=== PATIENT | female | born 1975 | race Caucasian/White ===

== ENCOUNTER → 2016-11-28 | Outpatient (CLI) | payer BC ==
[~2016-11-28] MED LIST: ACET-1256 PO; ALBUAER2 INH; BUPR-102 PO; CLB/200 PO; IMIP10TA PO; JNL12021 PO; NITR-5 PO; OXYC1TAB3 PO; ULT/50 PO
--- NOTE | 2016-11-28 12:47 | MAMMOGRAPHY REPORT ---
BILATERAL DIGITAL DIAGNOSTIC MAMMOGRAM TOMOSYNTHESIS WITH CAD: 11/28/2016 CLINICAL HISTORY: Six-month follow-up of left breast asymmetry. The patient reports no current comp laints. She reports a family history of breast cancer in her mother who has had bilateral breast ca ncer. TECHNIQUE: Breast tomosynthesis in addition to standard 2D mammography was performed. Current study was also evaluated with a Computer Aided Detection (CAD) system. Bilateral CC and MLO 2-D and nikko synthesis images were obtained. COMPARISON: Comparison is made to exams dated: 05/28/2016 ultrasound, 05/28/2016 mammogram, 6 aspiration, 08/05/2015 ultrasound, 08/05/2015 mammogram, and 07/28/2015 mammogram - [facility]. BREAST COMPOSITION: The tissue of both breasts is extremely dense, which lowers the sensitivity of mammography. FINDINGS: There are no suspicious masses, calcifications, or areas of architectural distortion noted in either breast. There has been no significant interval change compared to prior exams. The prev iously described asymmetry seen within the left breast on the cc view is less prominent compared to prior exams, and has the appearance of normal fibroglandular tissue on the tomosynthesis images. Th e asymmetry is benign and compatible with normal fibroglandular tissue. IMPRESSION: ACR BI-RADS CATEGORY 2: BENIGN There is no mammographic evidence of malignancy in either breast. A 1 year screening mammogram is re commended. The patient has been verbally notified of the results. Approximately 10% of breast cancers are not detected with mammography. A negative mammographic repor t should not delay biopsy if a clinically suggestive mass is present. Latha Godfrey M.D. ah/:11/28/2016 10:53:06 Patent Counsel: Farideh MITCHELL(R)(M), [facility] letter sent: Normal 1/2 BI-RADS Code: ACR BI-RADS Category 2: Benign
== END | disposition home or self-care (01) ==
LOC: C.MAMM 10:25
PROVIDERS: ATTEND Family Medicine
DX: R92.8 Other abnormal and inconclusive findings on diagnostic imaging of breast (principal); Z80.3 Family history of malignant neoplasm of breast

== ENCOUNTER 2017-04-23 18:47 | Emergency (ER) | payer BC ==
[~2017-04-23] VITALS: Ht 170.2 cm; Wt 66.6 kg
[~2017-04-23 18:47] MED LIST changes: -NITR-5 PO; -OXYC1TAB3 PO
[2017-04-23 19:09] VITALS: TEMP 36.7; Ht 170.2 cm; Wt 66.6 kg
--- NOTE | 2017-04-23 20:43 | EMERGENCY ROOM VISIT NOTE ---
History Report prepared by Mary Kay: Kostas Camara Under the Supervision of: Dr. Antolin Cherry M.D. First contact with patient: 20:26 Chief Complaint: FLANK PAIN Stated Complaint: ABDOMINAL AND BACK PAIN- PHYSICIAN REFERRED History of Present Illness The patient is a 41 year old female who presents to the Emergency Room with complaints of persistent right flank pain that started around 8 and a half hours ago. She says that she saw her primary care physician at the [facility] prior to arrival, and was noted to have blood in her urine, so she was sent here for further lab work. The patient states that her right flank pain started suddenly and has been constant. She does note that laying down makes the pain a bit better. She states that movement worsens the pain. She currently rates her pain as an 8 out of 10 in severity. The patient adds that she has a history of one kidney stone, which she had during her college years. She says that her current pain is similar to that kidney stone bout. She denies any rashes, nausea, chest pain, shortness of breath, fevers, chills, leg numbness, leg weakness, or vaginal discharge or bleeding. The patient also denies any recent trauma. She notes no chance of . She has a history of a cholecystectomy, but no other surgeries. Source of History: patient, spouse/significant other Onset: 8 and a half hours ago Position: other (right flank) Symptom Intensity: 8 out of 10 pain Quality: other (pain) Timing: constant, other (persistent) Modifying Factors (Worsening): movement Modifying Factors (Relieving): other (laying down) Associated Symptoms: No fevers, No chills, No chest pain, No SOB, No nausea , No weakness (leg), No numbness (leg), No rash Note: Associated symptoms: Denies vaginal discharge or bleeding. Review of Systems See HPI for pertinent positives & negatives. A total of 10 systems reviewed and were otherwise negative. 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 Nurse's notes were reviewed and I agree with. Family History Diabetes mellitus FHx: cancer Kidney disease Social History Smoking Status: Never Smoker Alcohol Use: none Housing Status: lives with family Occupation Status: disabled Current/Historical Medications Scheduled Bupropion Hcl (Smoking [place]eterre (Bupropion Hcl Sr), 300 MG PO QAM Ethinyl Estradiol/Norethindr (Junel 09/07), 1 TAB PO QAM Imipramine Hcl (Tofranil), 50 MG PO HS Nitrofurantoin Monohyd Macrocr (Macrobid), 100 MG PO BID Scheduled PRN Albuterol (Ventolin), 2 PUFFS INH QID PRN for PRN Oxycodone Immediate Rel Tab (Roxicodone Ir), 1-2 TAB PO Q4H PRN for Severe Pain Tramadol Hcl (Ultram), 50 MG PO TID PRN for moderate-severe pain Allergies Coded Allergies: Penicillins (Verified Allergy, Severe, DIFFICULTY BREATHING-ANAPHYLAXIS, ) Mushroom (Verified Allergy, Unknown, ANAPHYLAXIS, 04/23/17) Morphine (Verified Adverse Reaction, Intermediate, EMESIS, 04/23/17) Physical Exam Vital Signs Date Time Temp Pulse Resp B/P (MAP) Pulse Ox O2 Delivery O2 Flow Rate FiO2 04/23/17 21:41 76 18 128/75 100 Room Air 04/23/17 20:31 75 16 125/81 100 Room Air 04/23/17 19:09 36.7 91 16 122/81 97 Room Air Physical Exam General: Well developed well nourished uncomfortable-appearing middle aged female complaining of right flank and abdominal pain, breathing comfortably on room air. Normal speech HEENT: Normal cephalic atraumatic. Pupils are equal round and reactive to light. Extraocular movements are intact. Oropharynx is pink with moist mucous membranes. No swelling of the mouth lips or tongue. Neck: Supple with a midline trachea. No meningeal signs or stiffness, no JVD or bruits. No Stridor. Chest: Clear to auscultation bilaterally. No wheezes or rhonchi. No increased work of breathing. Heart: regular rate and rhythm. Abdomen: No rash. Mildly tendern right lower abdomen. Soft, nondistended without rebound guarding or rigidity. Extremities: No cyanosis clubbing or edema. No calf tenderness or assymetry Spine/Back. Non tender to palpation. No CVA tenderness Skin: Good turgor without rashes. Neurologic exam: Cranial nerves two through 12 are intact. Motor and sensation are intact and symmetrical throughout. Medical Decision & Procedures ER Provider Diagnostic Interpretation: CT results as stated below per my review and radiologist interpretation: ABD/PELVIS WITHOUT FOR STONE CT DOSE: 481.12 mGy.cm HISTORY: Flank pain eval for stone. Appy TECHNIQUE: Multiaxial CT images of the abdomen and pelvis were performed without the use of intravenous and oral contrast according to the standard department stone protocol. A dose lowering technique was utilized adhering to the principles of ALARA. COMPARISON STUDY: 11/08/2015 FINDINGS: Lung bases are clear. Liver spleen and pancreas appear unremarkable. Kidneys negative for hydronephrosis. Bowel pattern is nonobstructive. The appendix is normal. Several mesenteric nodes. Several small inguinal nodes. The appendix is normal. Bowel pattern is nonobstructive. Increased fecal load throughout the colon consistent with a component of fecal stasis. 2 cm ovarian cysts bilaterally IMPRESSION: 1. Increased fecal load throughout the colon consistent with a component of fecal stasis. 2. Mild mesenteric adenitis. 3. Small bilateral ovarian follicular cysts. 4. Normal appendix. 5. Prior cholecystectomy The above report was generated using voice recognition software. It may contain grammatical, syntax or spelling errors. Electronically signed by: Emmanuel Bartlett M.D. 04/23/2017 9:23 PM Dictated Date/Time: 04/23/2017 9:18 PM Laboratory Results 04/23/17 20:40 Red Blood Count 4.72, Mean Corpuscular Volume 83.9, Mean Corpuscular Hemoglobin 29.0, Mean Corpuscular Hemoglobin Concent 34.6, Mean Platelet Volume 9.7, Neutrophils (%) (Auto) 49.7, Lymphocytes (%) (Auto) 41.7, Monocytes (%) (Auto) 6.2, Eosinophils (%) (Auto) 1.1, Basophils (%) (Auto) 1.0, Neutrophils # (Auto) 4.68, Lymphocytes # (Auto) 3.92, Monocytes # (Auto) 0.58, Eosinophils # (Auto) 0.10, Basophils # (Auto) 0.09 04/23/17 20:40 Test 04/23/17 20:40 White Blood Count 9.40 K/uL (4.8-10.8) Red Blood Count 4.72 M/uL (4.2-5.4) Hemoglobin 13.7 g/dL (12.0-16.0) Hematocrit 39.6 % (37-47) Mean Corpuscular Volume 83.9 fL (80-100) Mean Corpuscular Hemoglobin 29.0 pg (25-34) Mean Corpuscular Hemoglobin Concent 34.6 g/dl (32-36) Platelet Count 430 K/uL (130-400) Mean Platelet Volume 9.7 fL (7.4-10.4) Neutrophils (%) (Auto) 49.7 % Lymphocytes (%) (Auto) 41.7 % Monocytes (%) (Auto) 6.2 % Eosinophils (%) (Auto) 1.1 % Basophils (%) (Auto) 1.0 % Neutrophils # (Auto) 4.68 K/uL (1.4-6.5) Lymphocytes # (Auto) 3.92 K/uL (1.2-3.4) Monocytes # (Auto) 0.58 K/uL (0.11-0.59) Eosinophils # (Auto) 0.10 K/uL (0-0.5) Basophils # (Auto) 0.09 K/uL (0-0.2) RDW Standard Deviation 39.4 fL (36.4-46.3) RDW Coefficient of Variation 12.9 % (11.5-14.5) Immature Granulocyte % (Auto) 0.3 % Immature Granulocyte # (Auto) 0.03 K/uL (0.00-0.02) Urine Color YELLOW Urine Appearance CLOUDY (CLEAR) Urine pH >= 9.0 (4.5-7.5) Urine Specific [place] 1.015 (1.000-1.030) Urine Protein NEG (NEG) Urine Glucose (UA) NEG (NEG) Urine Ketones NEG (NEG) Urine Occult Blood 2+ (NEG) Urine Nitrite NEG (NEG) Urine Bilirubin NEG (NEG) Urine Urobilinogen NEG (NEG) Urine Leukocyte Esterase LARGE (NEG) Urine WBC (Auto) >30 /hpf (0-5) Urine RBC (Auto) 10-30 /hpf (0-4) Urine Hyaline Casts (Auto) 0 /lpf (0-5) Urine Epithelial Cells (Auto) >30 /lpf (0-5) Urine Bacteria (Auto) 1+ (NEG) Anion Gap 5.0 mmol/L (3-11) Est Creatinine Clear Calc Drug Dose 70.6 ml/min Estimated GFR () 79.9 Estimated GFR (Non- 69.0 BUN/Creatinine Ratio 11.1 (10-20) Calcium Level 9.3 mg/dl (8.5-10.1) Total Bilirubin 0.4 mg/dl (0.2-1) Direct Bilirubin < 0.1 mg/dl (0-0.2) Aspartate Amino Transf (AST/SGOT) 15 U/L (15-37) Alanine Aminotransferase (ALT/SGPT) 19 U/L (12-78) Alkaline Phosphatase 39 U/L (45-117) Total Protein 8.0 gm/dl (6.4-8.2) Albumin 3.7 gm/dl (3.4-5.0) Lipase 135 U/L (73-393) Laboratory studies as stated above per my review. Medications Administered Medications (Trade) Dose Ordered Sig/Adele Route Start Time Stop Time Status Last Admin Dose Admin Sodium Chloride 1,000 ml @ 999 mls/hr Q1H1M STAT IV 04/23/17 20:45 04/23/17 21:45 DC 04/23/17 20:59 999 MLS/HR Sodium Chloride 1,000 ml @ 200 mls/hr Q5H ONCE IV 04/23/17 20:45 04/24/17 01:44 04/23/17 21:38 200 MLS/HR Ketorolac Tromethamine (Toradol Inj) 30 mg NOW STAT IV 04/23/17 20:45 04/23/17 20:47 DC 04/23/17 21:00 30 MG Ondansetron HCl (Zofran Inj) 4 mg NOW STAT IV 04/23/17 20:45 04/23/17 20:47 DC 04/23/17 20:58 4 MG Hydromorphone HCl (Dilaudid Inj) 1 mg NOW STAT IV 04/23/17 21:29 04/23/17 21:30 DC 04/23/17 21:38 1 MG Hydromorphone HCl (Dilaudid Inj) 0.5 mg NOW STAT IV 04/23/17 22:55 04/23/17 22:56 DC 04/23/17 23:06 0.5 MG Ondansetron HCl (Zofran Inj) 4 mg NOW STAT IV 04/23/17 22:56 04/23/17 22:57 DC 04/23/17 23:06 4 MG Sodium Chloride 1,000 ml @ 999 mls/hr Q1H1M STAT IV 04/23/17 23:02 04/24/17 00:02 04/23/17 23:07 999 MLS/HR ECG Indication: abdominal pain Rate (beats per minute): 78 Rhythm: normal sinus Findings: no ectopy Comparison ECG Date: Change: Incomplete right bundle-branch block. Rightward axis. ED Course 2034: Past medical records reviewed. The patient was evaluated in room C5, and a complete history and physical examination were performed. 2044: Ordered Zofran Inj 4 mg IV, Toradol Inj 30 mg IV, NSS 1000 ml @ 200 mls/ hr IV, NSS 1000 ml @ 999 mls/hr IV. 2125: I reevaluated the patient and she is still having pain. I went over the results with her. 2128: Ordered Dilaudid Inj 1 mg IV. 2216: Upon reevaluation, the patient is resting comfortably. I discussed the results and treatment plan with her. She verbalized agreement of the treatment plan. The patient was discharged home. 2229: Ordered Roxicodone Immediate Rel 5MG Home Pack 1 homepack PO. Medical Decision Differentials include but are not limited to: kidney stone, kidney infection, appendicitis, ovarian pathology, , electrolyte or metabolic abnormality. This patient comes in as described above. She was placed in room C5. She is here for treatment and evaluation of right abdominal flank pain. This came on suddenly. She's not significantly tender and she has no fever or white count to suggest infection. She's had not significant anemic. She is not . She's had no acute electrolyte or metabolic abnormalities. She has had her gallbladder previously removed. She has nothing to suggest liver or pancreas disease. I did a CAT scan and she has a normal appendix and no evidence of obstructive uropathy. She does have mild mesenteric adenitis and some stool stasis it may be that these are causing her symptoms. I did give her Dilaudid 1 mg IV and she was reassessed. She felt much better. Her lower abdominal pain does appear to be related to mesenteric adenitis. She is going to use OxyIR 5 mg one or 2 pills her for 6 hours as needed, she feels her Ultram is not working. I told her not to use both of them use one or the other. Do not take with alcohol or before driving do not take with any other stating medication or narcotics. she was also given Macrobid for the possibility of UTI. Her urinalysis is suboptimal and epithelial cells but also has blood and white cells. She was given the first dose here as well as a prescription. She was encouraged to return if: increasing pain, worsening of symptoms, fever or chills, any new problems or concerns. Just prior to being discharged she started complaining of more pain more in her epigastric area. I did EKG which shows no ischemia. She was given additional IV Dilaudid and IV Zofran and fluids and felt much better. I talked to her and she will feel she wants to go home and not be admitted. I encourage her to drink plenty fluids ensure that her bowels are moving and she is going to take the pain medications. She was happy with the plan and was discharged home with her driving. Medication Reconcilliation Current Medication List: was personally reviewed by me Blood Pressure Screening Patient's blood pressure: Normal blood pressure Impression Primary Impression: Right lower quadrant abdominal pain Additional Impression: Mesenteric adenitis Scribe Attestation The scribe's documentation has been prepared under my direction and personally reviewed by me in its entirety. I confirm that the note above accurately reflects all work, treatment, procedures, and medical decision making performed by me. Departure Information Dispostion Home / Self-Care Prescriptions Nitrofurantoin Monohyd Macrocr (Macrobid) 100 Mg Cap 100 MG PO BID for 7 Days, #14 CAP Prov: Antolin Cherry M.D. 04/23/17 Oxycodone Immediate Rel Tab (ROXICODONE IR) 5 Mg Tab 1-2 TAB PO Q4H Y for Severe Pain, #14 TAB Prov: Antolin Cherry M.D. 04/23/17 Referrals Michael Dos Santos M.D. (PCP) Patient Instructions My [facility] Additional Instructions Rest. Drink plenty of fluids. Mild diet. May use OxyIR 5 mg one or 2 pills every 4-6 hours as needed for pain OxyIR may make you drowsy -do not take before drinking, driving, working Do not take OxyIR with your Ultram/tramadol or any other narcotics or alcohol OxyIR may make you drowsy- do not take before drinking, driving, working Return if: Increasing pain, fever or chills, worsening of symptoms, vomiting, any new problems or concerns Follow-up with your doctor in 1-2 days for recheck if not better Problem Qualifiers
[2017-04-23] MEDS ORDERED: ONDANSETRON INJ 2 MG/ML 2 ML VIAL IV STA ×2 (20:45→22:56)
[2017-04-23] MEDS ORDERED: SODIUM CHLORIDE 0.9% 1000ML 1,000 ML IV STA ×2 (20:45→23:02)
[2017-04-23] MEDS ORDERED: SODIUM CHLORIDE 0.9% 1000ML 1,000 ML IV ONE (20:45)
[2017-04-23] MEDS ORDERED: KETOROLAC TROMETHAMINE 30 MG/ML VIAL IV STA (20:45)
[2017-04-23 20:53] LABS: BASO ABS # 0.09 K/uL (0-0.2); COMPLETE YES; EOS % 1.1 %; HEMATOCRIT 39.6 % (37-47); IG% 0.3 %; LYMPH % 41.7 %; LYMPH ABS # 3.92 K/uL (1.2-3.4); MEAN CELL VOLUME 83.9 fL (80-100); MEAN CORPUSCULAR HGB CONC 34.6 g/dl (32-36); MEAN PLATELET VOLUME 9.7 fL (7.4-10.4); MONO % 6.2 %; NEUT % 49.7 %; PLATELET COUNT 430 K/uL (130-400); RED BLOOD COUNT 4.72 M/uL (4.2-5.4)
[2017-04-23 21:09] LABS: URINE APPEARANCE CLOUDY (CLEAR); URINE BILIRUBIN NEG (NEG); URINE COLOR YELLOW; URINE EPITHELIAL CELL AUTO >30 /lpf (0-5); URINE NITRITE NEG (NEG); URINE PH >= 9.0 (4.5-7.5); URINE SPECIFIC GRAVITY 1.015 (1.000-1.030); UROBILINOGEN NEG (NEG)
[2017-04-23 21:14] LABS: ALT/SGPT 19 U/L (12-78); AST/SGOT 15 U/L (15-37); BLOOD UREA NITROGEN 11 mg/dl (7-18); BUN/CREATININE RATIO 11.1 (10-20); CALCIUM 9.3 mg/dl (8.5-10.1); CARBON DIOXIDE 29 mmol/L (21-32); CHLORIDE 103 mmol/L (98-107); GLUCOSE 82 mg/dl (70-99); POTASSIUM 3.4 mmol/L (3.5-5.1); SODIUM 137 mmol/L (136-145)
[2017-04-23 21:17] LABS: ALKALINE PHOSPHATASE 39 U/L (45-117); MANUAL MICROSCOPIC REQUIRED? NO; REVIEW REQ? NO
--- NOTE | 2017-04-23 21:24 | DIAGNOSTIC IMAGING REPORT ---
ABD/PELVIS WITHOUT FOR STONE CT DOSE: 481.12 mGy.cm HISTORY: Flank pain eval for stone. Appy TECHNIQUE: Multiaxial CT images of the abdomen and pelvis were performed without the use of intravenous and oral contrast according to the standard department stone protocol. A dose lowering technique was utilized adhering to the principles of ALARA. COMPARISON STUDY: 11/08/2015 FINDINGS: Lung bases are clear. Liver spleen and pancreas appear unremarkable. Kidneys negative for hydronephrosis. Bowel pattern is nonobstructive. The appendix is normal. Several mesenteric nodes. Several small inguinal nodes. The appendix is normal. Bowel pattern is nonobstructive. Increased fecal load throughout the colon consistent with a component of fecal stasis. 2 cm ovarian cysts bilaterally IMPRESSION: 1. Increased fecal load throughout the colon consistent with a component of fecal stasis. 2. Mild mesenteric adenitis. 3. Small bilateral ovarian follicular cysts. 4. Normal appendix. 5. Prior cholecystectomy. The above report was generated using voice recognition software. It may contain grammatical, syntax or spelling errors. Electronically signed by: Emmanuel Bartlett M.D. 04/23/2017 9:23 PM Dictated Date/Time: 04/23/2017 9:18 PM
[2017-04-23] MEDS ORDERED: HYDROmorphone INJ 1 MG/ML SYR IV STA (21:29)
[2017-04-23] MEDS ORDERED: OXYC1TAB3 PO (22:24)
[2017-04-23] MEDS ORDERED: OXYCODONE IR HOME PACK PO ONE (22:30)
[2017-04-23] MEDS ORDERED: NITR-5 PO (22:45)
[2017-04-23] MEDS ORDERED: MACROBID 100MG HOME PACK 1 EA VIAL PO ONE (22:45)
[2017-04-23] MEDS ORDERED: HYDROmorphone INJ 0.5 MG/0.5 ML SYR IV STA (22:55)
[2017-04-23 23:58] VITALS: BP 118/72; PULSE 86; O2SAT 97
== END 2017-04-23 23:59 | disposition home or self-care (01) ==
LOC: C.EDB 18:49 → C.EDC 23:59
DX: R10.31 Right lower quadrant pain (principal); I88.0 Nonspecific mesenteric lymphadenitis; J45.909 Unspecified asthma, uncomplicated; F98.8 Other specified behavioral and emotional disorders with onset usually occurring in childhood and adolescence; F32.9 Major depressive disorder, single episode, unspecified; M79.7 Fibromyalgia; H81.09 Meniere's disease, unspecified ear; Z83.3 Family history of diabetes mellitus; Z80.9 Family history of malignant neoplasm, unspecified; Z84.1 Family history of disorders of kidney and ureter; Z79.899 Other long term (current) drug therapy

== ENCOUNTER → 2017-05-22 | Outpatient (CLI) | payer BC ==
[~2017-05-22] MED LIST changes: -ACET-1256 PO; -CLB/200 PO; +GADAVIST IV PRN; +OXYC1TAB3 PO
--- NOTE | 2017-05-23 13:53 | MAMMOGRAPHY REPORT ---
BREAST MRI OF BOTH BREASTS : 05/22/2017 CLINICAL HISTORY: 41-year-old woman presents for screening breast MRI. She has a family history of b reast cancer and extremely dense breasts. COMPARISON: Comparison is made to exams dated: 11/28/2016 mammogram, 05/28/2016 ultrasound, 6 mammogram, 08/24/2015 aspiration, 08/05/2015 ultrasound, and 08/05/2015 mammogram - [facility]. TECHNIQUE: Using a 1.5 Shira magnet and dedicated breast coil, multisequence axial images were obtain ed through the breasts. After uneventful IV administration of 6.7 mL of Gadavist, dynamic multiphase contrast-enhanced axial images, and sagittal postcontrast were obtained. Temporal subtraction axial images and 3-D MIP images are provided. Everything was then reviewed on a 3-D workstation, [employer]. FINDINGS: Right breast: There is moderate background parenchymal enhancement. There are scattered T2 hyperinte nse cysts. There is no suspicious enhancing mass, obvious area of non-mass enhancement or suspicious kinetics in the right breast. No focal skin thickening or nipple retraction. No suspicious right a xillary lymphadenopathy. Left breast: There is moderate background parenchymal enhancement. There are scattered T2 hyperinten se cysts. The dominant cyst in the left lower outer quadrant measures 11 mm. There is a small enhan cing mass in the 6:00 to 7:00 middle one third of the left breast (axial page 79/104) that measures 4 x 6 x 5 mm. It demonstrates central washout and peripheral plateau kinetics. This is indeterminate and further characterization with targeted second look ultrasound and possible ultrasound-guided cor e biopsy is recommended. No other suspicious mass or non-mass enhancement is seen in the left breast . No suspicious kinetics. No focal skin thickening or nipple retraction. No suspicious left axilla ry lymphadenopathy. IMPRESSION: ACR BI-RADS CATEGORY 0: INCOMPLETE EVALUATION: NEED ADDITIONAL IMAGING EVALUATION 1. There is a small, 4 x 6 x 5 mm enhancing mass in the 6:00 to 7:00 middle one third of the left br east with suspicious associated kinetics. Targeted second look ultrasound with possible ultrasound g uided core biopsy is recommended (45 minutes cluster. 2. No other prominent or suspicious mass or non-mass enhancement in either breast. 3. No suspicious axillary adenopathy bilaterally. The patient will be called to schedule an appointment. Mary Alicia M.D. ay/:05/22/2017 17:06:05 Automotive Sales Specialist: equipment mechanic specialist, [facility] letter sent: Addl Imaging 0 BI-RADS Code: ACR BI-RADS Category 0: Incomplete Evaluation: Need Additional Imaging Evaluation
== END ==
LOC: C.MRI 11:49
PROVIDERS: ATTEND Surgery
DX: Z12.31 Encounter for screening mammogram for malignant neoplasm of breast (principal); Z80.3 Family history of malignant neoplasm of breast; R92.2 Inconclusive mammogram

== ENCOUNTER → 2017-06-06 | Outpatient (CLI) | payer BC ==
[~2017-06-06] MED LIST changes: -GADAVIST IV PRN
--- NOTE | 2017-06-06 08:49 | Discharge Instructions ---
Discharge Instructions Procedure Procedure Date: Jun 06, 2017. Reason for visit: Left Enhancing Mass. Discharge Discharge Date: Jun 06, 2017. Discharge Diagnosis: status post breast biopsy Instructions Activity Recommendations: Additional Limitations (see below) Return to School/Work: no limitations Recommended Home Diet: No Limitations Provider Instructions: ACTIVITY RECOMMENDATIONS: * No lifting, pushing, pulling or exercising the affected side for three days. RETURN TO SCHOOL/WORK: * You may return to work/school after the procedure, but do not perform any strenuous activities for 24 to 48 hours. MEDICATIONS: * Tylenol (two 325 mg) every four to six hours if needed for mild pain (if not allergic to Tylenol). DIET: * Resume previous diet. SPECIAL CARE INSTRUCTIONS: * Keep biopsy site dry for 24 hours. May shower after 24 hours, but do not soak (bathe) incision. * May remove Tegaderm (plastic patch) tomorrow AFTER showering. * Leave the steri-strips on for one week. Allow the steri-strips to fall off by themselves. If not off after one week, you may remove them. You may place a Bandaid crosswise over the strips, if desired. * Apply ice 10 minutes on and 10 minutes off as needed. * Wear a bra at bedtime to sleep more comfortably for 2-3 days. * Your referring physician should have the results after approximately 5 to 7 business days. * Call for unusual bleeding, fever, drainage, etc or if you have any questions call during normal business hours or after hours call Dr Godfrey, [phone]. FOLLOW UP VISIT: Follow-up with Referring Physician as scheduled. Allergies Coded Allergies: Penicillins (Verified Allergy, Severe, DIFFICULTY BREATHING-ANAPHYLAXIS, ) Mushroom (Verified Allergy, Unknown, ANAPHYLAXIS, 04/23/17) Morphine (Verified Adverse Reaction, Intermediate, EMESIS, 04/23/17) Dyan Licea Recommendations: Call your doctor if: * Temperature above 101 degrees * Pain not relieved by pain medicine ordered * There is increased drainage or redness from any incision * You have any unanswered questions or concerns. Your Doctors Instructions noted above were prepared by provider Latha Godfrey. Patient Signature Section: Patient Instructions Signature Page Janelle Edmond Patient (or Guardian) Signature/Date: I have read and understand the instructions given to me by my caregivers. Caregiver/RN/Doctor Signature/Date: The above-named patient and/or guardian has received patient instructions on this date. + Original Patient Signature Page (only) stays with chart. Please make copy for patient.
--- NOTE | 2017-06-06 14:35 | MAMMOGRAPHY REPORT ---
UNILATERAL LEFT DIGITAL DIAGNOSTIC MAMMOGRAM TOMOSYNTHESIS: 06/06/2017 CLINICAL HISTORY: Status post left breast biopsy. TECHNIQUE: Breast tomosynthesis in addition to standard 2D mammography was performed. Postprocedura l left CC and LM tomosynthesis images including C views were obtained. COMPARISON: Comparison is made to exams dated: 06/06/2017 ultrasound biopsy, 05/22/2017 breast MRI, mammogram, and 05/28/2016 mammogram - [facility]. BREAST COMPOSITION: The tissue of the left breast is extremely dense, which lowers the sensitivity o f mammography. FINDINGS: A new biopsy marker clip is seen within the left inferior breast status post ultrasound gu ided biopsy of the left 6:00 breast mass. No significant postbiopsy hematoma is seen. IMPRESSION: POST PROCEDURE IMAGING FOR MARKER PLACEMENT New biopsy marker clip status post ultrasound guided biopsy of the left 6:00 breast mass. Pathology results are pending. Approximately 10% of breast cancers are not detected with mammography. A negative mammographic report should not delay biopsy if a clinically suggestive mass is present. Latha Godfrey M.D. ah/:06/06/2017 09:04:05 Histopath Tech: Farideh Anton RT(R)(M), [facility] BI-RADS Code: Post Procedure Imaging For Marker Placement
--- NOTE | 2017-06-06 14:35 | MAMMOGRAPHY REPORT ---
ULTRASOUND OF LEFT BREAST: 06/06/2017 CLINICAL HISTORY: Enhancing mass seen in the left 6 to 7:00 breast on recent breast MRI, for which se cond look ultrasound was recommended. COMPARISON: Comparison is made to exams dated: 06/06/2017 ultrasound biopsy, 05/22/2017 breast MRI, mammogram, and 05/28/2016 mammogram - [facility]. TECHNIQUE: Real-time targeted ultrasound of the left breast was performed. FINDINGS: Real-time, high-resolution targeted ultrasound was performed of the area of the enhancing mass seen on recent breast MRI in the left 6 to 7:00 breast. In the left breast at 6:00, 3 cm from t he nipple, there is a hypoechoic non-circumscribed mass which measures 5 x 7 x 4. This is similar in shape, size, and location to the enhancing mass seen on breast MRI and is felt to correlate with the enhancing mass. The mass is indeterminate and ultrasound guided core needle biopsy is recommended f or further evaluation. IMPRESSION: ACR BI-RADS CATEGORY 4: SUSPICIOUS - FOLLOW-UP RECOMMENDED Hypoechoic non-circumscribed 7 mm mass in the left breast at 6:00, which is felt to correspond with t he enhancing mass seen on breast MRI. The mass is indeterminate and ultrasound-guided core needle bi opsy is recommended for further evaluation. The results were discussed with the patient. Biopsy was performed immediately after the ultrasound e elder. Latha Godfrey M.D. /:06/06/2017 08:51:13 Flat Locker: Latha Godfrey MD, [facility] BI-RADS Code: ACR BI-RADS Category 4: Suspicious
--- NOTE | 2017-06-06 14:35 | MAMMOGRAPHY REPORT ---
ULTRASOUND GUIDED BIOPSY LEFT BREAST: 06/06/2017 CLINICAL HISTORY: Left 6:00 breast mass. PATIENT CONSENT: The procedure, risks and benefits were discussed with the patient and informed writt en consent was obtained. A timeout was performed immediately prior to the procedure. PROCEDURE DESCRIPTION: With ultrasound guidance, aseptic technique, and lidocaine as the local anesth etic (1% lidocaine to anesthetize the skin and 1% lidocaine with epinephrine to anesthetize the deepe r tissues), the mass of concern in the left 6:00 breast was sampled 4 times with a 14-gauge Achieve b iopsy needle. Immediately thereafter, with ultrasound guidance, aseptic technique, and lidocaine as the local anesthetic, a metallic localizer clip was placed centrally in the mass. Direct pressure wa s applied to the site immediately post procedure and hemostasis was achieved. Postprocedure unilater al mammograms were performed to confirm clip placement. The patient tolerated the procedure without complication. She was given wound care instructions. The specimens were sent to pathology for analys is. COMPARISON: Comparison is made to exams dated: 05/22/2017 breast MRI, 11/28/2016 mammogram, 05/28/2016 ultrasound, 05/28/2016 mammogram, 08/24/2015 aspiration, and 08/05/2015 ultrasound - [facility]. IMPRESSION: ULTRASOUND GUIDED BIOPSY Ultrasound guided core needle biopsy of the left 6:00 breast mass, with clip placement. The patient will receive pathology results from her referring provider. Latha Godfrey M.D. ah/:06/06/2017 08:52:39 Media Monitor: Farideh MITCHELL(Dimas)(M), [facility]
== END | disposition home or self-care (01) ==
LOC: C.MAMM 08:13
PROVIDERS: ATTEND Surgery
DX: N63.20 Unspecified lump in the left breast, unspecified quadrant (principal); D24.2 Benign neoplasm of left breast

== ENCOUNTER → 2017-11-20 | Outpatient (CLI) | payer OTHER ==
[~2017-11-20] MED LIST changes: -OXYC1TAB3 PO
--- NOTE | 2017-11-20 15:21 | MAMMOGRAPHY REPORT ---
BILATERAL DIGITAL DIAGNOSTIC MAMMOGRAM TOMOSYNTHESIS WITH CAD AND TARGETED LEFT ULTRASOUND: 11/20/2017 CLINICAL HISTORY: The patient is status post surgical excision of a left breast papilloma July 08. The patient reports a palpable lump and associated pain in the left breast for approximately 3 m onths. TECHNIQUE: Breast tomosynthesis in addition to standard 2D mammography was performed. Current study was also evaluated with a Computer Aided Detection (CAD) system. Bilateral CC and MLO 2D and tomosyn thesis images were obtained. COMPARISON: Comparison is made to exams dated: 06/06/2017 mammogram, 06/06/2017 ultrasound, 7 mammogram, 05/28/2016 mammogram, 08/05/2015 mammogram, and 07/28/2015 mammogram - [facility]. BREAST COMPOSITION: The tissue of both breasts is extremely dense, which lowers the sensitivity of m ammography. FINDINGS: There is new mild post surgical architectural distortion in the left 6:00 breast at the sit e of the surgical excision of a left breast papilloma. A triangle marker silva the site of the palpa ble lump in the left 6:00 breast near the region of the post surgical architectural distortion. A li near scar marker denotes a scar on the left anterior breast. There are no suspicious masses, calcifi cations, or areas of nonsurgical architectural distortion in either breast. There has been no signif icant interval change compared to prior exams. Asymmetry within the left retroareolar breast posteri vicenta on the cc view is stable compared to multiple prior exams and has the appearance of normal fibro glandular tissue. Targeted ultrasound was performed of the area of the palpable lump and associated pain pointed out by the patient, in the left breast at approximately 5:30 to 6:00, centered around 5 cm from the nipple. There is ill-defined hypoechoic tissue and associated posterior acoustic shadowing in this region, which correlates with the mammographic architectural distortion and has the mammographic and sonograp hic appearance of postsurgical changes. No suspicious masses or other suspicious sonographic abnorma lities are evident. IMPRESSION: ACR BI-RADS CATEGORY 2: BENIGN, TARGETED ULTRASOUND ACR BI-RADS CATEGORY 2: BENIGN Expected postsurgical changes from surgical excision of a left breast papilloma in the region of the palpable left breast lump pointed out by the patient. There is no mammographic or targeted sonograph ic evidence of malignancy. Recommend clinical follow-up for the tender palpable left breast lump; an y decision to biopsy should be based on clinical grounds. Also recommend routine bilateral screening mammograms in one year. Also consider continuation with annual screening bilateral breast MRI given the strong family history of breast cancer, which would be due May 2018. The patient has been verbally notified of the results. Approximately 10% of breast cancers are not detected with mammography. A negative mammographic report should not delay biopsy if a clinically suggestive mass is present. Latha Godfrey M.D. ah/:11/20/2017 08:54:11 Freight Air Brake Fitter: Karen MITCHELL(Dimas)(M), [facility] letter sent: Normal 1/2 BI-RADS Code: ACR BI-RADS Category 2: Benign Ultrasound BI-RADS: ACR BI-RADS Category 2: Benign
== END | disposition home or self-care (01) ==
LOC: C.MAMM 08:12
PROVIDERS: ATTEND Surgery
DX: N63.20 Unspecified lump in the left breast, unspecified quadrant (principal)

== ENCOUNTER 2022-04-15 14:18 | Inpatient (IN) ==
[2022-04-15] MEDS ORDERED: KETOROLAC TROMETHAMINE 15 MG/ML VIAL IV STA ×2 (14:36→16:49)
[2022-04-15] MEDS ORDERED: SODIUM CHLORIDE 0.9% 1000ML 1,000 ML IV ONE (14:36)
[2022-04-15] MEDS ORDERED: ONDANSETRON INJ 2 MG/ML 2 ML VIAL IV STA (14:36)
--- NOTE | 2022-04-15 15:03 | Emergency Department Note ---
History of Present Illness General Chief Complaint: Abdominal Pain Stated Complaint: ABD PAIN,NAUSEA,SWEATS Time Seen by Provider: 04/15/22 14:24 History of Present Illness Provider Complaint: abdominal pain Onset (ago): 1 day(s) Pain Consistency: constant Location: RLQ Radiation: none Severity: severe Maximum Pain Intensity: 10 Current Pain Intensity: 9 Quality: + stabbing and + sharp Relieved By: + nothing Exacerbated By: + nothing Context: no foreign travel, no possible food poisoning, no sick contacts, no recent antibiotic use, no recent surgery/procedure or no recent injury Associated Symptoms: + nausea and + constipation; no vomiting, no diarrhea, no fever, no chills, no dysuria, no hematemesis, no melena, no hematuria, no syncope, no headache, no neck pain, no back pain, no chest pain, no weakness, no breathing difficulty and no numbness Home Medications Medication Instructions Recorded Confirmed Type bupropion HCl 150 mg 24 hr tablet, 150 mg PO QAM 04/15/22 04/15/22 History extended release bupropion HCl 300 mg 24 hr tablet, 300 mg PO QAM 04/15/22 04/15/22 History extended release buspirone 10 mg tablet 10 mg PO TID 04/15/22 04/15/22 History dexmethylphenidate 10 mg tablet 10 mg PO TID 04/15/22 04/15/22 History imipramine HCl 50 mg tablet 125 mg PO HS 04/15/22 04/15/22 History lorazepam 1 mg tablet 1 mg PO HS PRN Sleep 04/15/22 04/15/22 History norethindrone acetate 1 mg-ethinyl 1 tab PO DAILY 04/15/22 04/15/22 History estradiol 20 mcg tablet (Junel) tramadol 50 mg tablet 50 mg PO Q6 PRN Pain, Severe 04/15/22 04/15/22 History Allergies Allergy/AdvReac Type Severity Reaction Status Date / Time Penicillins Allergy Severe DIFFICULTY Verified 04/15/22 15:21 BREATHING-ANAPHYLAXIS mushroom Allergy Unknown ANAPHYLAXIS Verified 04/15/22 15:21 morphine AdvReac Intermediate EMESIS Verified 04/15/22 15:21 Past Med/Surg History Medical History Asthma Attention deficit disorder Depression Fibromyalgia Mnire's disease No pertinent family history Surgical History History of cholecystectomy Social History Smoking Status: Never smoker Hx Alcohol Use: Yes Preferred Language: Uzbek marital status: Current Living Situation: Spouse current occupational status: employed Feels Safe at Home: Yes Review of Systems A total of 10 systems reviewed and were otherwise negative Physical Exam Vital Signs: Vital Signs - 24 hr 04/15/22 14:19 04/15/22 15:03 04/15/22 15:07 Temperature 36.5 C Temperature Source Oral Pulse Rate 83 Pulse Rate [Right Finger] 76 Respiratory Rate 16 20 Respiratory Effort / Characteristics Non-Labored Respiratory Depth Normal Blood Pressure 118/73 Blood Pressure [Ri ght Arm] 104/63 Blood Pressure Santa n 88 Blood Pressure Santa n [Right Arm] 76 Pulse Oximetry 97 100 Oxygen Delivery Me thod Room Air Room Air Sepsis Recent Feve r Within 48 Hours No Sepsis New/Unexpla ined Change in Men stefany Status No Sepsis Action Take n by Nursing No Action Required Physical Exam: Physical Exam GENERAL: She is oriented to person, place, and time. She appears well-developed and well-nourished. She does not appear distressed. HENT: Exam performed. -Head: Normocephalic and atraumatic. -Right Ear: External ear normal. No mastoid tenderness. -Left Ear: External ear normal. No mastoid tenderness. -Mouth/Throat: The oropharynx is clear and moist. No trismus in the jaw. No dental abscesses or uvula swelling. No oropharyngeal exudate or tonsillar abscesses. EYES: Conjunctivae and EOM are normal. Pupils are equal, round, and reactive to light. Right eye exhibits no discharge. Left eye exhibits no discharge. No scleral icterus. NECK: Normal range of motion. Neck supple. No JVD present. No spinous process tenderness present. No carotid bruit present. No rigidity. No tracheal deviation and normal range of motion present. No Brudzinski's sign and no Kernig's sign noted. CV: Normal rate, regular rhythm, normal heart sounds and intact distal pulses. T here is no peripheral edema. Palpable radial pulses bue. PULM/CHEST: Effort normal and breath sounds normal. No respiratory distress. No stridor. She has no wheezes. She has no rales. -Chest Wall: She exhibits no tenderness. ABD: The abdomen is soft. Bowel sounds are normal. She has no distension. No mass is present. There is no tenderness. There is no rebound, no guarding, no Desouza's sign and no tenderness at McBurney's point. Rovsig negative MUSC/SKEL: Normal range of motion. There is no peripheral edema, tenderness or deformity. LYMPH: No cervical adenopathy. NEURO: She is alert and oriented to person, place, and time. She has normal strength. No cranial nerve deficit or sensory deficit. Coordination and gait normal. GCS eye subscore is 4. GCS verbal subscore is 5. GCS motor subscore is 6. Cerebellar tests wnl. SKIN: Skin is warm and dry. She is not diaphoretic. PSYCH: She has a normal mood and affect. Behavior is normal. Judgment and thought content normal. Course Course 1424: The patient was evaluated in room A2. A complete history and physical exam was performed Cardiac monitoring: An order was placed for continuous cardiac monitoring. The monitor shows a rate of 80 with sinus rhythm 1750: Vital signs stable. Labs show a leukocytosis of 14.8. Urinalysis is possibly infected. Antibiotics given in the emergency department IV. Imaging shows wall thickening of the descending colon consistent with a nonspecific colitis. No free air or abscess. There is also a near occlusive thrombus within the anterior branch of the right portal vein possible minimal process within the distal superior mesenteric vein extending into the main portal vein and a normal appendix. I discussed these CT findings with GI on-call Dr. Oswaldo Briggs. Both he and I agree feel would be warranted for the patient to be admitted for anticoagulation with heparin and be evaluated for hypercoagulable work-up and then transition to Coumadin. Coags were added to the patient's blood work. Patient reports no history of any hypercoagulable diseases or past work-up for hypercoagulable diseases. Patient be admitted to the [facility] hospitalist team Dr. Frost team notified. Administered Medications Heparin Sodium/Dextrose (Heparin Sodium/Dextrose) 25,000 units in 500 mls @ 23 mls/hr IV .[id number] [facility]; Protocol Stop: 05/15/22 18:14 Last Admin: 04/15/22 18:45 Dose: 1,150 units/hr, 23 mls/hr Documented By: ROB Co-signed By: SANDY Ciprofloxacin (Cipro / D5w) 400 mg in 200 mls @ 100 mls/hr IV NOW STA; Protocol Stop: 04/15/22 19:48 Last Admin: 04/15/22 18:46 Dose: 100 mls/hr Documented By: ROB Sodium Chloride (Nss 1000ml) 1,000 mls @ 125 mls/hr IV .Q8H ILIANA Stop: 05/15/22 18:29 Last Admin: 04/15/22 18:46 Dose: 125 mls/hr Documented By: ROB Discontinued Medications Heparin Sodium (Porcine) (Heparin Sod (Porcine) 1000 Unit/Ml) 5,000 units IV NOW ONE Stop: 04/15/22 18:31 Last Admin: 04/15/22 18:45 Dose: 5,000 units Documented By: ROB Co-signed By: SANDY Sodium Chloride (Nss 1000ml) 1,000 mls @ 999 mls/hr IV .Q1H1M ONE Stop: 04/15/22 15:36 Last Infusion: 04/15/22 16:19 Dose: 0 mls/hr Documented By: Admin: 04/15/22 15:04 Dose: 999 mls/hr Documented By: SANDY Ioversol (Optiray 300 500ml) 95 ml IV ONCE ONE Stop: 04/15/22 17:03 Last Admin: 04/15/22 17:03 Dose: 95 ml Documented By: EMIGDIO Ketorolac Tromethamine (Ketorolac Tromethamine 15 Mg/Ml Vial) 15 mg IV NOW STA Stop: 04/15/22 14:37 Last Admin: 04/15/22 15:04 Dose: 15 mg Documented By: SANDY Ketorolac Tromethamine (Ketorolac Tromethamine 15 Mg/Ml Vial) 15 mg IV NOW STA Stop: 04/15/22 16:50 Last Admin: 04/15/22 17:09 Dose: 15 mg Documented By: ROB Ondansetron HCl (Ondansetron Inj 2 Mg/Ml 2 Ml Vial) 4 mg IV NOW STA Stop: 04/15/22 14:37 Last Admin: 04/15/22 15:04 Dose: 4 mg Documented By: SANDY Medical Decision Making Laboratory Data Result diagrams: 04/15/22 14:37 04/15/22 14:37 Lab Results 04/15/22 04/15/22 04/15/22 Range/Units 14:37 14:37 14:37 WBC 14.82 H (4.8-10.8) K/ul RBC 4.63 (3.93-5.22) M/uL Hgb 13.4 (12.0-16.0) g/dl Hct 40.1 (34.1-44.9) % MCV 86.6 (80.0-100.0) fL MCH 28.9 (25.0-34.0) pg MCHC 33.4 (32.0-36.0) g/dL RDW Std Deviation 42.2 (36.4-46.3) fL RDW Coeff of Froy 13.5 (11.5-14.5) % Plt Count 374 (130-400) K/uL MPV 9.4 (9.4-12.3) fL Immature Gran % (Auto) 0.4 % Neut % (Auto) 81.0 % Lymph % (Auto) 13.6 % Troup % (Auto) 4.0 % Eos % (Auto) 0.5 % Baso % (Auto) 0.5 % Neut # (Auto) 12.00 H (1.4-6.5) K/uL Lymph # (Auto) 2.01 (1.2-3.4) K/uL Troup # (Auto) 0.60 (0.24-0.82) K/uL Eos # (Auto) 0.07 (0-0.50) K/uL Baso # (Auto) 0.08 (0-0.2) K/uL Immature Gran # (Auto) 0.06 H (0.00-0.02) K/uL PT (9.0-12.0) Seconds INR (0.9-1.1) APTT (21.0-31.0) Seconds PTT Ratio Sodium 137 (136-145) mmol/L Potassium 3.6 (3.5-5.1) mmol/L Chloride 102 (98-107) mmol/L Carbon Dioxide 23 (21-32) mmol/L Anion Gap 12 H (3-11) BUN 19 (6-23) mg/dl Creatinine 1.27 H (0.6-1.2) mg/dl Est Cr Clr Drug Dosing Not Reportable Est GFR ( Amer) 57.8 ml/min Est GFR (Non-Af Amer) 49.9 ml/min BUN/Creatinine Ratio 15.0 (10-20) Glucose 111 H (70-99(Fasting)) mg/dl Calcium 9.5 (8.5-10.1) mg/dl Total Bilirubin 0.4 (0.2-1.0) mg/dl Direct Bilirubin 0.0 (0-0.2) mg/dl AST 19 (13-39) U/L ALT 18 (7-52) U/L Alkaline Phosphatase 39 (34-104) U/L Total Protein 7.5 (6.0-8.3) gm/dl Albumin 4.3 (3.4-5.0) gm/dl Lipase 28 Cancelled (11-82) U/L Urine Color Urine Appearance (Clear) Urine pH (4.5-7.5) Ur Specific [place] (1.000-1.030) Urine Protein (Negative) Urine Glucose (UA) (Negative) Urine Ketones (Negative) Urine Blood (Negative) Urine Nitrite (Negative) Urine Bilirubin (Negative) Urine Urobilinogen (Negative) Ur Leukocyte Esterase (Negative) Urine WBC (Auto) (0-5) /hpf Urine RBC (Auto) (0-4) /hpf U Hyaline Cast (Auto) (0-5) /lpf U Epithel Cells (Auto) (0-5) /lpf Urine Bacteria (Auto) (Negative) Urine Mucus (None Prsent) Urine Yeast POC Ur Test (NEG) 04/15/22 04/15/22 04/15/22 Range/Units 14:51 14:51 18:18 WBC (4.8-10.8) K/ul RBC (3.93-5.22) M/uL Hgb (12.0-16.0) g/dl Hct (34.1-44.9) % MCV (80.0-100.0) fL MCH (25.0-34.0) pg MCHC (32.0-36.0) g/dL RDW Std Deviation (36.4-46.3) fL RDW Coeff of Froy (11.5-14.5) % Plt Count (130-400) K/uL MPV (9.4-12.3) fL Immature Gran % (Auto) % Neut % (Auto) % Lymph % (Auto) % Troup % (Auto) % Eos % (Auto) % Baso % (Auto) % Neut # (Auto) (1.4-6.5) K/uL Lymph # (Auto) (1.2-3.4) K/uL Troup # (Auto) (0.24-0.82) K/uL Eos # (Auto) (0-0.50) K/uL Baso # (Auto) (0-0.2) K/uL Immature Gran # (Auto) (0.00-0.02) K/uL PT 10.3 (9.0-12.0) Seconds INR 1.0 (0.9-1.1) APTT 20.3 L (21.0-31.0) Seconds PTT Ratio 0.7 Sodium (136-145) mmol/L Potassium (3.5-5.1) mmol/L Chloride (98-107) mmol/L Carbon Dioxide (21-32) mmol/L Anion Gap (3-11) BUN (6-23) mg/dl Creatinine (0.6-1.2) mg/dl Est Cr Clr Drug Dosing Est GFR ( Amer) ml/min Est GFR (Non-Af Amer) ml/min BUN/Creatinine Ratio (10-20) Glucose (70-99(Fasting)) mg/dl Calcium (8.5-10.1) mg/dl Total Bilirubin (0.2-1.0) mg/dl Direct Bilirubin (0-0.2) mg/dl AST (13-39) U/L ALT (7-52) U/L Alkaline Phosphatase (34-104) U/L Total Protein (6.0-8.3) gm/dl Albumin (3.4-5.0) gm/dl Lipase (11-82) U/L Urine Color Dark Yellow Urine Appearance Turbid A (Clear) Urine pH 6.5 (4.5-7.5) Ur Specific [place] 1.024 (1.000-1.030) Urine Protein 2+ H (Negative) Urine Glucose (UA) Negative (Negative) Urine Ketones Trace H (Negative) Urine Blood 2+ H (Negative) Urine Nitrite Negative (Negative) Urine Bilirubin 1+ H (Negative) Urine Urobilinogen Negative (Negative) Ur Leukocyte Esterase 3+ H (Negative) Urine WBC (Auto) >30 H (0-5) /hpf Urine RBC (Auto) 10-30 H (0-4) /hpf U Hyaline Cast (Auto) 0 (0-5) /lpf U Epithel Cells (Auto) >30 H (0-5) /lpf Urine Bacteria (Auto) 4+ H (Negative) Urine Mucus Present A (None Prsent) Urine Yeast Not Reportable POC Ur Test NEG (NEG) Imaging Data Radiologist's Impression: Abdomen/Pelvis CT 04/15/22 14:37 CT OF THE ABDOMEN AND PELVIS WITH CONTRAST CLINICAL HISTORY: Right lower quadrant pain. COMPARISON STUDY: CT of the abdomen and pelvis June 09, 2018. TECHNIQUE: Following IV administration of 95 mL of Optiray, axial images of the abdomen and pelvis were obtained from the lung bases to the proximal femurs. Images were reviewed in the axial, sagittal, and coronal planes. IV contrast was administered without complication. Automated exposure control was utilized for the study. A dose lowering technique was utilized adhering to the principles of ALARA. CT DOSE: 254.79 mGy.cm FINDINGS: Lung bases are unremarkable. No pneumatosis, free air or portal venous gas is present. There is no biliary ductal dilatation status post cholecystectomy. A 1.6 cm intermediate attenuation inferior right hepatic lobe lesion on image 153 of [address] of June 09, 2018. This is benign given stability. A 7 mm hypodense lateral segment lesion is unchanged. This favors a cyst. There is near occlusive thrombus within the anterior branch of the right portal vein shown on axial image 86 of 411. The left portal vein is patent. There is possible minimal nonocclusive thrombus within the distal superior mesenteric vei n extending into the main portal vein on axial image 114 of 411. There is no evidence for a bowel obstruction. The appendix is normal. There is wall thickening with moderate stranding and a small amount of fluid adjacent to the descending colon. There is no abscess. Moderate amount of stool within the colon and rectum is noted. There is no lymphadenopathy. No acute fracture or suspicious lesion within the visualized skeletal structures is present. The spleen, adrenal glands, kidneys and pancreas are unremarkable. There is no hydronephrosis. IMPRESSION: 1. Wall thickening with pericolonic inflammation of the descending colon. This represents a nonspecific colitis. No free air or abscess. 2. 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 Possible minimal thrombus within the distal superior mesenteric vein extending into the main portal vein. 3. Normal appendix. No bowel obstruction. Moderate amount of stool within the colon and rectum. ACT 112: Negative or not required by law. Electronically signed by: Yamil Del Rio M.D. 04/15/2022 5:28 PM MDM Narrative Vital signs stable. Labs show a leukocytosis of 14.8. Urinalysis is possibly infected. Antibiotics given in the emergency department IV. Imaging shows wall thickening of the descending colon consistent with a nonspecific colitis. No free air or abscess. There is also a near occlusive thrombus within the anterior branch of the right portal vein possible minimal process within the distal superior mesenteric vein extending into the main portal vein and a normal appendix. I discussed these CT findings with GI on-call Dr. Oswaldo Briggs. Both he and I agree feel would be warranted for the patient to be admitted for anticoagulation with heparin and be evaluated for hypercoagulable work-up and then transition to Coumadin. Coags were added to the patient's blood work. Patient reports no history of any hypercoagulable diseases or past work-up for hypercoagulable diseases. [facility] Impression & Plan Hepatic vein thrombosis, UTI (urinary tract infection) Critical Care Time Critical Care Time: Yes Total Critical Care Time: 48 I have personally spent greater than 48 minutes of critical care time in the direct management of this patient. This includes bedside care, interpretation of diagnostic studies, and testing, discussion with consultants, patient, and family members, and other required patient management activities. This 48 minutes is in excess of all separately billable procedures. Discharge Plan Visit Data Chief Complaint: Abdominal Pain Stated Complaint: ABD PAIN,NAUSEA,SWEATS ED Provider: Robin Marsh Discharge Problem: Hepatic vein thrombosis, UTI (urinary tract infection) Patient Disposition: Admitted As Inpatient Forms Stand Alone Forms: My [facility] Prescriptions Prescriptions: No Action imipramine HCl 50 mg tablet 125 mg PO HS Rx Instructions: take 2 & 1/2 tablet dose tramadol 50 mg tablet 50 mg PO Q6 PRN (Reason: Pain, Severe) dexmethylphenidate 10 mg tablet 10 mg PO TID buspirone 10 mg tablet 10 mg PO TID norethindrone ac-eth estradiol [09/07 (21)] 1-20 mg-mcg tablet 1 tab PO DAILY lorazepam 1 mg tablet 1 mg PO HS PRN (Reason: Sleep) bupropion HCl 300 mg tablet extended release 24 hr 300 mg PO QAM bupropion HCl 150 mg tablet extended release 24 hr 150 mg PO QAM Rx Instructions: take along with 300mg Referrals Referrals: Michael Dos Santos MD [Primary Care Provider] -
[2022-04-15 15:11] LABS: Appearance Urine Turbid (Clear); Bacteria Urine Automated 4+ (Negative); Blood Urine 2+ (Negative); Color Urine Dark Yellow; Epithelial Cell Urine Auto >30 /lpf (0-5); Glucose Urine UA Negative (Negative); Ketones Urine Trace (Negative); Leukocyte Esterase Urine 3+ (Negative); Nitrite Urine Negative (Negative); Protein Urine 2+ (Negative); Specific Gravity Urine 1.024 (1.000-1.030); Urobilinogen Urine Negative (Negative); WBC Urine Automated >30 /hpf (0-5); pH Urine 6.5 (4.5-7.5)
[2022-04-15 15:20] LABS: Bilirubin Urine 1+ (Negative)
[2022-04-15 15:31] LABS: Cast Urine Automated 0 /lpf (0-5)
[2022-04-15 15:32] LABS: Mucus Urine Present (None Prsent)
[2022-04-15 15:39] LABS: Basophils # (auto) 0.08 K/uL (0-0.2); Basophils % (auto) 0.5 %; Eosinophils # (auto) 0.07 K/uL (0-0.50); Eosinophils % (auto) 0.5 %; Hematocrit (blood only) 40.1 % (34.1-44.9); Hemoglobin 13.4 g/dl (12.0-16.0); Immature Granulocytes # (auto) 0.06 K/uL (0.00-0.02); Immature Granulocytes % (auto) 0.4 %; Lymphocytes # (auto) 2.01 K/uL (1.2-3.4); Lymphocytes % (auto) 13.6 %; Mean Corpuscular Hemoglobin 28.9 pg (25.0-34.0); Mean Corpuscular Hgb Conc 33.4 g/dL (32.0-36.0); Mean Corpuscular Volume 86.6 fL (80.0-100.0); Mean Platelet Volume 9.4 fL (9.4-12.3); Platelet Count 374 K/uL (130-400); RDW Coefficient of Variation 13.5 % (11.5-14.5); RDW Standard Deviation 42.2 fL (36.4-46.3); Red Blood Count 4.63 M/uL (3.93-5.22); White Blood Count 14.82 K/ul (4.8-10.8)
[2022-04-15 16:04] LABS: Alanine Aminotransferase 18 U/L (7-52); Albumin Level 4.3 gm/dl (3.4-5.0); Alkaline Phosphatase 39 U/L (34-104); Anion Gap 12 (3-11); Aspartate Aminotransferase 19 U/L (13-39); Bilirubin,Total 0.4 mg/dl (0.2-1.0); Blood Urea Nitrogen 19 mg/dl (6-23); Calcium 9.5 mg/dl (8.5-10.1); Carbon Dioxide 23 mmol/L (21-32); Chloride 102 mmol/L (98-107); Est GFR (African American) 57.8 ml/min; Est GFR (Non-African American) 49.9 ml/min; Glucose 111 mg/dl (70-99(Fasting)); Lipase 28 U/L (11-82); Potassium 3.6 mmol/L (3.5-5.1); Sodium 137 mmol/L (136-145); Total Protein 7.5 gm/dl (6.0-8.3)
[2022-04-15] MEDS ORDERED: OPTIRAY 300 500mL IV ONE (17:02)
--- NOTE | 2022-04-15 17:30 | CT Scan Report ---
CT OF THE ABDOMEN AND PELVIS WITH CONTRAST CLINICAL HISTORY: Right lower quadrant pain. COMPARISON STUDY: CT of the abdomen and pelvis June 09, 2018. TECHNIQUE: Following IV administration of 95 mL of Optiray, axial images of the abdomen and pelvis we re obtained from the lung bases to the proximal femurs. Images were reviewed in the axial, sagittal, and coronal planes. IV contrast was administered without complication. Automated exposure control wa s utilized for the study. A dose lowering technique was utilized adhering to the principles of ALARA . CT DOSE: 254.79 mGy.cm FINDINGS: Lung bases are unremarkable. No pneumatosis, free air or portal venous gas is present. Ther e is no biliary ductal dilatation status post cholecystectomy. A 1.6 cm intermediate attenuation infe rior right hepatic lobe lesion on image 153 of [address] of June 09, 2018. This is benign given stability. A 7 mm hypodense lateral segment lesion is unchanged. This favors a cyst. There is near occlusive thrombus within the anterior branch of the right portal vein shown on axial i mage 86 of 411. The left portal vein is patent. There is possible minimal nonocclusive thrombus withi n the distal superior mesenteric vein extending into the main portal vein on axial image 114 of 411. There is no evidence for a bowel obstruction. The appendix is normal. There is wall thickening with m oderate stranding and a small amount of fluid adjacent to the descending colon. There is no abscess. Moderate amount of stool within the colon and rectum is noted. There is no lymphadenopathy. No acute fracture or suspicious lesion within the visualized skeletal structures is present. The spleen, adren al glands, kidneys and pancreas are unremarkable. There is no hydronephrosis. IMPRESSION: 1. Wall thickening with pericolonic inflammation of the descending colon. This represents a nonspecif ic colitis. No free air or abscess. 2. 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 Possible minimal thro mbus within the distal superior mesenteric vein extending into the main portal vein. 3. Normal appendix. No bowel obstruction. Moderate amount of stool within the colon and rectum. ACT 112: Negative or not required by law. Electronically signed by: Yamil Del Rio M.D. 04/15/2022 5:28 PM
[2022-04-15] MEDS ORDERED: Heparin IV Adult Wt-Based Standard WITH Bolus Protocol IV STA (17:48)
[2022-04-15] MEDS ORDERED: CIPROFLOXACIN / D5W 400 MG/200 ML BAG IV STA (17:49)
[2022-04-15] MEDS ORDERED: HEPARIN SOD (PORCINE) 1000 UNIT/ML IV ONE ×2 (18:04→18:30)
[2022-04-15 18:36] LABS: Partial Thromboplastin Ratio 0.7; Partial Thromboplastin Time 20.3 Seconds (21.0-31.0); Prothrombin Time 10.3 Seconds (9.0-12.0)
[2022-04-15] MEDS: HEPARIN SODIUM/DEXTROSE 25,000 UNITS/500 ML BAG IV SCH (18:45)
[2022-04-15] MEDS: SODIUM CHLORIDE 0.9% 1000ML 1,000 ML IV SCH ×3 (18:46→22:43)
[2022-04-15] MEDS ORDERED: oxyCODONE/ACETAMINOPHEN 5mg/325mg TAB PO STA (19:01)
--- NOTE | 2022-04-15 19:08 | History & Physical Report ---
Date of Service April 15, 2022 Assessment & Plan (1) Portal vein thrombosis: Plan: Abdominal pain 2/[address] scan along with inflammation in the descending colon, likely 2/2 ischemic colitis. Questionably chronic issue with ongoing post-prandial abdominal pain reported for up to 6 months. Heparin started in ER before hypercoagulable panel could be drawn so this was deferred to outpatient setting. Possible culprit is her OCPs which have been discont inued. She was taking these for "hormone balance." We discussed the possibility of a withdraw, however, this may not be an issue for her as her ovaries are still working. She is a nonsmoker. She has no known malignancy. Pain is moderate to severe. Starting percocet. GI has been consulted. (2) Colitis: Plan: Likely related to PVT. Cont heparin and Cipro/flagyl added for prophylaxis against microscopic bacterial translocation into the gut. She also has a UTI. No evidence of sepsis or signs of systemic infection. Definitive workup per GI team. (3) UTI (urinary tract infection): Plan: Cipro empirically as above given additional abdominal issues. Urine culture is pending. (4) Attention deficit disorder without mention of hyperactivity: Plan: chronic, stable. Cont Ritalin per home dosing. (5) Depression: Plan: Chronic, stable. Cont bupropion 450mg daily per home regimen. (6) Asthma: Plan: very well controlled per patient report today. No wheezing on exam. Doesn't use inhalers regularly. (7) Fibromyalgia: Plan: chronic, stable. Cont Imipramine per home regimen. Hold tramadol while on Percocet. (8) DVT prophylaxis: Plan: Heparin drip Full Code Dipso-to home when stable and improved. Klaudia Frost DO [facility] Hospitalist History of Present Illness Chief Complaint: severe acute abdominal pain Primary Care Provider: Michael Dos Santos MD 46 yo F presents with acute onset severe abdominal pain She reports frequent post-prandial episodes of abdominal pain in the past 6 months and reports weight gain despite "doing everything I can" to lose weight She does report dysuria for the past few days. No fevers, chills, chest pain, SOB Abdominal pain is sharp just under the umbilicus, changes in intensity. Can peak post-prandial to an unbearable level. It is intermittent. Denies blood per rectum, diarrhea or constipation. Reports a h/o IBS with alternating diarrhea and constipation. Denies nausea, vomiting or hematemesis. Allergies Allergy/AdvReac Type Severity Reaction Status Date / Time Penicillins Allergy Severe DIFFICULTY Verified 04/15/22 15:21 BREATHING-ANAPHYLAXIS mushroom Allergy Unknown ANAPHYLAXIS Verified 04/15/22 15:21 morphine AdvReac Intermediate EMESIS Verified 04/15/22 15:21 Home Medications Medication Instructions Recorded Confirmed Type bupropion HCl 150 mg 24 hr tablet, 150 mg PO HS 04/15/22 04/15/22 History extended release bupropion HCl 300 mg 24 hr tablet, 300 mg PO HS 04/15/22 04/15/22 History extended release buspirone 10 mg tablet 10 mg PO TID 04/15/22 04/15/22 History dexmethylphenidate 10 mg tablet 10 mg PO TID 04/15/22 04/15/22 History imipramine HCl 50 mg tablet 125 mg PO HS 04/15/22 04/15/22 History lorazepam 1 mg tablet 1 mg PO HS PRN Sleep 04/15/22 04/15/22 History norethindrone acetate 1 mg-ethinyl 1 tab PO DAILY 04/15/22 04/15/22 History estradiol 20 mcg tablet (Junel) tramadol 50 mg tablet 50 mg PO Q6 PRN Pain, Severe 04/15/22 04/15/22 History Past Med/Surg History Medical History Asthma Attention deficit disorder Depression Fibromyalgia IBS (irritable bowel syndrome) Migraines Mnire's disease No pertinent family history Surgical History History of cholecystectomy Family History Mother Breast cancer Uncle Diabetes Father Throat cancer Social History Smoking Status: Never smoker Hx Alcohol Use: Yes Preferred Language: French marital status: Current Living Situation: Spouse current occupational status: employed Feels Safe at Home: Yes Review of Systems Review of Systems: All systems were reviewed and negative except as indicated on HPI above. Physical Exam Physical Exam: CONSTITUTIONAL: WNWD, vitals as above, moderate distress from abdominal pain, holding her abdomen at times. EYES: normal conjunctivae, no scleral icterus ENT: external ear and nose normal, MMM NECK: trachea midline RESPIRATORY: clear to auscultation bilaterally, no crackles, rales or wheezes, normal respiratory effort CARDIOVASCULAR: regular rate and rhythm, S1 and 2 heard without murmurs, gallops or rubs, no JVD, no peripheral edema CHEST: inspection of chest was normal GASTROINTESTINAL: soft, diffusely tender RUQ>LLQ>suprapubic, no CVA tenderness, nondistended. MUSCULOSKELETAL: strength 5/5 throughout, head is normocephalic and atraumatic, able to sit up in bed independently SKIN: warm and dry NEUROLOGIC: CN 2-12 grossly intact, no sensory deficit, normal cognition, normal speech, no tremor PSYCHIATRIC: alert cooperative and oriented to person, place and time. Results & Data Results & Data ([facility]) Vital Signs (Past 12 Hours) Vital Signs Temp Pulse Pulse Resp BP BP Pulse Ox 04/15/22 18:00 85 19 118/84 99 04/15/22 17:00 85 04/15/22 15:07 76 20 104/63 100 04/15/22 15:03 04/15/22 14:19 36.5 C 83 16 118/73 97 O2 Del Method 04/15/22 18:00 Room Air 04/15/22 17:00 Room Air 04/15/22 15:07 Room Air 04/15/22 15:03 Room Air 04/15/22 14:19 Laboratory Results Short CBC 04/15/22 Range/Units 14:37 WBC 14.82 H (4.8-10.8) K/ul Hgb 13.4 (12.0-16.0) g/dl Hct 40.1 (34.1-44.9) % Plt Count 374 (130-400) K/uL BMP 04/15/22 14:37 Sodium 137 Potassium 3.6 Chloride 102 Carbon Dioxide 23 BUN 19 Creatinine 1.27 H Glucose 111 H Calcium 9.5 Liver Function 04/15/22 Range/Units 14:37 Total Bilirubin 0.4 (0.2-1.0) mg/dl Direct Bilirubin 0.0 (0-0.2) mg/dl AST 19 (13-39) U/L ALT 18 (7-52) U/L Alkaline Phosphatase 39 (34-104) U/L Albumin 4.3 (3.4-5.0) gm/dl Urine 04/15/22 Range/Units 14:51 Urine Color Dark Yellow Urine Appearance Turbid A (Clear) Urine pH 6.5 (4.5-7.5) Ur Specific Perry 1.024 (1.000-1.030) Urine Protein 2+ H (Negative) Urine Glucose (UA) Negative (Negative) Diagnostic Findings Abdomen/Pelvis CT 04/15/22 14:37 CT OF THE ABDOMEN AND PELVIS WITH CONTRAST CLINICAL HISTORY: Right lower quadrant pain. COMPARISON STUDY: CT of the abdomen and pelvis June 09, 2018. TECHNIQUE: Following IV administration of 95 mL of Optiray, axial images of the abdomen and pelvis were obtained from the lung bases to the proximal femurs. Images were reviewed in the axial, sagittal, and coronal planes. IV contrast was administered without complication. Automated exposure control was utilized for the study. A dose lowering technique was utilized adhering to the principles of ALARA. CT DOSE: 254.79 mGy.cm FINDINGS: Lung bases are unremarkable. No pneumatosis, free air or portal venous gas is present. There is no biliary ductal dilatation status post cholecystectomy. A 1.6 cm intermediate attenuation inferior right hepatic lobe lesion on image 153 of [address] of June 09, 2018. This is benign given stability. A 7 mm hypodense lateral segment lesion is unchanged. This favors a cyst. There is near occlusive thrombus within the anterior branch of the right portal vein shown on axial image 86 of 411. The left portal vein is patent. There is possible minimal nonocclusive thrombus within the distal superior mesenteric vein extending into the main portal vein on axial image 114 of 411. There is no evidence for a bowel obstruction. The appendix is normal. There is wall thickening with moderate stranding and a small amount of fluid adjacent to the descending colon. There is no abscess. Moderate amount of stool within the colon and rectum is noted. There is no lymphadenopathy. No acute fracture or suspicious lesion within the visualized skeletal structures is present. The spleen, adrenal glands, kidneys and pancreas are unremarkable. There is no hydronephrosis. IMPRESSION: 1. Wall thickening with pericolonic inflammation of the descending colon. This represents a nonspecific colitis. No free air or abscess. 2. 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 Possible minimal thrombus within the distal superior mesenteric vein extending into the main portal vein. 3. Normal appendix. No bowel obstruction. Moderate amount of stool within the colon and rectum. ACT 112: Negative or not required by law. Electronically signed by: Yamil Del Rio M.D. 04/15/2022 5:28 PM
[2022-04-15] MEDS ORDERED: POLYETHYLENE (MIRALAX) 17 GM PACK PO PRN (21:02)
[2022-04-15] MEDS ORDERED: ALUMINUM/MAGNESIUM SUSP 30 ML UDC PO PRN (21:02)
[2022-04-15] MEDS ORDERED: traMADol HCL 50 MG TABLET PO PRN (21:02)
[2022-04-15] MEDS: oxyCODONE HCL IR 5 MG TAB (IMMEDIATE RELEASE) PO PRN (22:40)
[2022-04-15] MEDS: LORazepam 1 MG TAB PO PRN (22:40)
[2022-04-15] MEDS: buPROPion XL 150 MG TABCR PO SCH (22:41)
[2022-04-15] MEDS: busPIRone 5 MG TAB PO SCH (22:41)
[2022-04-15] MEDS: buPROPion XL 300 MG TABCR PO SCH (22:41)
[2022-04-15] MEDS: metroNIDAZOLE 500 MG TAB PO SCH (22:42)
[2022-04-15] MEDS: IMIPRAMINE HCL 25 MG TAB PO SCH (22:42)
[2022-04-16 01:16] LABS: Partial Thromboplastin Ratio 1.6; Partial Thromboplastin Time 44.4 Seconds (21.0-31.0)
[2022-04-16] MEDS: metroNIDAZOLE 500 MG TAB PO SCH ×3 (05:29→21:31)
[2022-04-16 07:35] LABS: Basophils # (auto) 0.05 K/uL (0-0.2); Basophils % (auto) 0.3 %; Eosinophils # (auto) 0.09 K/uL (0-0.50); Eosinophils % (auto) 0.5 %; Hematocrit (blood only) 33.7 % (34.1-44.9); Hemoglobin 11.3 g/dl (12.0-16.0); Immature Granulocytes # (auto) 0.05 K/uL (0.00-0.02); Immature Granulocytes % (auto) 0.3 %; Lymphocytes % (auto) 7.9 %; Mean Corpuscular Hgb Conc 33.5 g/dL (32.0-36.0); Mean Corpuscular Volume 86.6 fL (80.0-100.0); Mean Platelet Volume 9.3 fL (9.4-12.3); Monocytes % (auto) 4.3 %; Neutrophils # (auto) 14.24 K/uL (1.4-6.5); Neutrophils % (auto) 86.7 %; Platelet Count 280 K/uL (130-400); RDW Coefficient of Variation 13.8 % (11.5-14.5); RDW Standard Deviation 43.6 fL (36.4-46.3); Red Blood Count 3.89 M/uL (3.93-5.22); White Blood Count 16.43 K/ul (4.8-10.8)
[2022-04-16 07:46] LABS: Partial Thromboplastin Ratio 1.5; Partial Thromboplastin Time 42.5 Seconds (21.0-31.0)
[2022-04-16] MEDS: oxyCODONE HCL IR 5 MG TAB (IMMEDIATE RELEASE) PO PRN ×4 (08:00→21:30)
[2022-04-16] MEDS: busPIRone 5 MG TAB PO SCH ×3 (08:15→21:30)
[2022-04-16] MEDS: PROMETHAZINE HCL 25 MG TAB PO PRN ×2 (08:15→13:48)
[2022-04-16 08:24] LABS: Calcium 7.7 mg/dl (8.5-10.1); Creatinine Clr Calc Pharmacy 77.8 ml/min; Est GFR (African American) 92.6 ml/min; Est GFR (Non-African American) 79.9 ml/min; Potassium 3.9 mmol/L (3.5-5.1)
[2022-04-16] MEDS: CIPROFLOXACIN / D5W 400 MG/200 ML BAG IV SCH ×2 (09:01→21:40)
[2022-04-16] MEDS: SODIUM CHLORIDE 0.9% 1000ML 1,000 ML IV SCH ×2 (09:43→14:55)
--- NOTE | 2022-04-16 10:33 | Gastrointestinal Consultation ---
Date of Consultation April 16, 2022 Assessment & Plan (1) Colitis: Likely acute ischemic colitis secondary to intermittent fasting, likely slightly low fluid intake while doing vigorous exercise, methylphenidate use (2) Portal vein thrombosis: Possibly secondary to OCs. Would DC. Possibly secondary to the ischemic colitis Of note, pt was able to tolerate solid food for lunch without difficulty Would stay with clear liquids today. Has a hx of IBS and seems sedate this morning from narcs so would avoid/limit narcotics. Supervising Physician Co-Signing Physician Notes Attg add (late entry from this afternoon) I interviewed an examined pt, reviewed chart and labs. Pt with abrupt onset of lower abd pain and rectal bleeding. She has a h/o intermittent fasting, recent vigorous exercise day before presentation, and is on methylphenidate. Imaging on admit showed segmental PVT with non occlusive minimal extension into main portal vein and SMV, also descending colitis Her WBC was 16 on admit; no fever in hospital or at home prior to admission. On . She has a h/o fibromyalgia and IBS, and reports lower abd pain relieved by urgent liquid stool for the past 6 mos, while on 16/6 intermittent fasting diet. Her reports that she frequenly has abdominal pain related to fibromyalgia. Placed on heparin and abx overnight; blood cx not done prior to abx. 2 scant bloody BM's since admission. She currently reports pain. She is minimally hungry when first examined in am, but had solid food for lunch without difficulty. She has been using oxycodone every 4-5 hours On exam, she is drowsy but arousable. Her abdomen is diffusely tender with vol guarding in lower abdomen. I reviewed films with Dr. Del Rio. A/P: Ischemic colitis, in 46 yo in context of exercise, fasting, methylphenidate use Segmental PVT, presumably caused by ischemic colitis and Junel use. Possible pylephlebitis? - Regarding ischemic colitis - Althgouh her PO intake and hunger are encouraging, would encourage bowel rest with clears until pain improves. Surgery consult to follow along. Agree with abx. Serial abd exams. Agree with holding methylphenidate. Hydration. - Regarding PVT, possible pylephlebitis. - Agree with anti-coagulation and abx. Hyper coag w/u and cirrhosis w/u (fibroscan) as outpt. Hold Junel. Follow for bleeding on ac. History of Present Illness Reason for Consultation: colitis with mesenteric vein thrombus Requesting Physician: Dr. Frost Attending Physician: Jones Ly MD History of Present Illness Ms. Janelle Edmond is a 46 yr old female pt of Dr. Henri casillas a hx of IBS, asthma, depression, ADD, IBS and gallbladder dx S/P cholecystectomy. 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 During this time, she has had about 2 episodes/week of having moderately severe suprapubic/LLQ after eating an initial meal after the 16 hr fast. The cramping would be followed by a loose BM. Yesterday, after eating lunch, she had pain in this area, but much more intense, accompanied by nausea, sweating/feeling weak. She presented to the ED and non specific bowel wall edema was noted in the descending colon. He WBC was elevated at 14. On arrival, CT with descending colon wall thickening, occlusive thrombosis in the portal vein. Allergies Allergy/AdvReac Type Severity Reaction Status Date / Time Penicillins Allergy Severe DIFFICULTY Verified 04/15/22 15:21 BREATHING-ANAPHYLAXIS mushroom Allergy Unknown ANAPHYLAXIS Verified 04/15/22 15:21 morphine AdvReac Intermediate EMESIS Verified 04/15/22 15:21 Home Medications Medication Instructions Recorded Confirmed Type bupropion HCl 150 mg 24 hr tablet, 150 mg PO HS 04/15/22 04/15/22 History extended release bupropion HCl 300 mg 24 hr tablet, 300 mg PO HS 04/15/22 04/15/22 History extended release buspirone 10 mg tablet 10 mg PO TID 04/15/22 04/15/22 History dexmethylphenidate 10 mg tablet 10 mg PO TID 04/15/22 04/15/22 History imipramine HCl 50 mg tablet 125 mg PO HS 04/15/22 04/15/22 History lorazepam 1 mg tablet 1 mg PO HS PRN Sleep 04/15/22 04/15/22 History norethindrone acetate 1 mg-ethinyl 1 tab PO DAILY 04/15/22 04/15/22 History estradiol 20 mcg tablet (Junel) tramadol 50 mg tablet 50 mg PO Q6 PRN Pain, Severe 04/15/22 04/15/22 History Patient History Medical History Asthma Attention deficit disorder Depression Fibromyalgia IBS (irritable bowel syndrome) Migraines Mnire's disease No pertinent family history Surgical History History of cholecystectomy Family History Mother Breast cancer Uncle Diabetes Father Throat cancer Social History Smoking Status: Never smoker Hx Alcohol Use: Yes Alcohol type: beer and wine Hx Substance Use: No Preferred Language: Kiswahili Communication Ability: Effective Screen Handler Required: No Beliefs That Will Affect Care: None marital status: Current Living Situation: Spouse current occupational status: employed Feels Safe at Home: Yes Assistive Devices: Cane Review of Systems Review of Systems: ROS: Gen: Denies weakness, fevers, weight loss Eyes: No eye redness, or pain, no recent vision changes Resp: No SOB, no cough Cardio: No palpitations/irregular beats, no chest pain GI: See HPI : Denies pain on urination Skin: No jaundice, itching or new rashes Physical Exam Constitutional: well developed, well nourished and + acute distress (+ abdominal pain) Eyes: PERRL, conjunctivae normal, anicteric sclerae ENMT: external ear and nose normal, oropharynx normal Neck: trachea midline, no thyromegaly Respiratory: normal respiratory effort, lungs clear to auscultation Cardiovascular: RRR, no murmur, no edema Gastrointestinal (Abdomen): exquisitely tender in the LLQ, moderately tender elsewhere. Abd is soft, non distended Skin: no rashes, warm and dry Neurologic: PERRL, EOMI, accommodation nl, no face palsy, no dysarthria Psychiatric: Somewhat sedated during the interview/exam, mumbling. Answers most questions but w minimal detail. Likely secondary to narcotic effect. No agitation. No confusion Lymphatic: no cervical or axillary lymphadenopathy Results & Data ([facility]) Vital Signs (Past 12 Hours) Vital Signs Temp Pulse Resp BP Pulse Ox O2 Del Method 04/16/22 07:26 36.7 C 89 12 117/74 99 Room Air 04/16/22 00:41 36.8 C 78 18 138/81 98 Room Air Laboratory Results WBc 16, Hb 113., Hct 33, Plts 280, Na 134, K 3.9, Cl 105,CO2 21, Bn 12, Cr 0.8, glucose 105. Diagnostic Findings CTAP w IV: 04/15/22: 1. Wall thickening with pericolonic inflammation of the descending colon. This represents a nonspecific colitis. No free air or abscess. 2. 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 Possible minimal thrombus within the distal superior mesenteric vein extending into the main portal vein. 3. Normal appendix. No bowel obstruction. Moderate amount of stool within the colon and rectum.
[2022-04-16] MEDS: ACETAMINOPHEN 325 MG TAB PO PRN ×3 (11:14→20:29)
[2022-04-16] MEDS ORDERED: ALBUTEROL 0.083% NEBU SOLN 3 ML VIAL NEB PRN (12:32)
--- NOTE | 2022-04-16 14:39 | Surgery Consultation ---
Date of Consultation April 16, 2022 Assessment & Plan (1) Colitis: 46-year-old female with nonspecific left-sided colitis as well as thrombus of a branch of the portal vein. These may or may not be related. She is currently stable. No surgical intervention indicated at this time Continue anticoagulation Consider colonoscopy if failure to improve or as an outpatient Surgery will follow, call with questions or concerns (2) Portal vein thrombosis: (3) Fibromyalgia: (4) S/P cholecystectomy: History of Present Illness Attending Physician: Jones Ly MD History of Present Illness 46-year-old female admitted for abdominal pain, CT scan showed an on specific colitis as well as a portal vein thrombosis. She was started on anticoagulation admitted. She has had 1-2 episodes of this type of abdominal pain in the past, and thought it was secondary to eating after her intermittent fasting diet. This time the pain got worse. She has had colonoscopies in the past. No personal or family history of inflammatory bowel disease. No history of clots in the past. She is a non-smoker. She had a cholecystectomy in the past. She did have bloody bowel movements starting anticoagulation. Allergies Allergy/AdvReac Type Severity Reaction Status Date / Time Penicillins Allergy Severe DIFFICULTY Verified 04/15/22 15:21 BREATHING-ANAPHYLAXIS mushroom Allergy Unknown ANAPHYLAXIS Verified 04/15/22 15:21 morphine AdvReac Intermediate EMESIS Verified 04/15/22 15:21 Home Medications Medication Instructions Recorded Confirmed Type bupropion HCl 150 mg 24 hr tablet, 150 mg PO HS 04/15/22 04/15/22 History extended release bupropion HCl 300 mg 24 hr tablet, 300 mg PO HS 04/15/22 04/15/22 History extended release buspirone 10 mg tablet 10 mg PO TID 04/15/22 04/15/22 History dexmethylphenidate 10 mg tablet 10 mg PO TID 04/15/22 04/15/22 History imipramine HCl 50 mg tablet 125 mg PO HS 04/15/22 04/15/22 History lorazepam 1 mg tablet 1 mg PO HS PRN Sleep 04/15/22 04/15/22 History norethindrone acetate 1 mg-ethinyl 1 tab PO DAILY 04/15/22 04/15/22 History estradiol 20 mcg tablet (Junel) tramadol 50 mg tablet 50 mg PO Q6 PRN Pain, Severe 04/15/22 04/15/22 History Patient History Medical History Asthma Attention deficit disorder Depression Fibromyalgia IBS (irritable bowel syndrome) Migraines Mnire's disease No pertinent family history Surgical History History of cholecystectomy Family History Mother Breast cancer Uncle Diabetes Father Throat cancer Social History Smoking Status: Never smoker Hx Alcohol Use: Yes Alcohol type: beer and wine Hx Substance Use: No Preferred Language: [place] Communication Ability: Effective Energy And Sustainability Manager Required: No Beliefs That Will Affect Care: None marital status: Current Living Situation: Spouse current occupational status: employed Other Information That Helps Us Care for You: No Feels Safe at Home: Yes Safety Concerns: Feels Safe At This Time Assistive Devices: Cane Review of Systems Review of Systems: All systems reviewed & are unremarkable except as noted in HPI & below Physical Exam Constitutional: WD/WN, vitals as above Respiratory: normal respiratory effort, lungs clear to auscultation Cardiovascular: RRR, no murmur, no edema Gastrointestinal (Abdomen): Inspection/Auscultation: + abdominal surgical scar (Port site scars well-healed) Percussion/Palpation: + abdomen tender (Tender to palpation in the left lower quadrant) and abdomen soft; no guarding, abdomen not rigid and no hernia Results & Data ([facility]) Vital Signs (Past 12 Hours) Vital Signs Temp Pulse Resp BP Pulse Ox O2 Del Method 04/16/22 07:26 36.7 C 89 12 117/74 99 Room Air Laboratory Results Laboratory Results - last 24 hr 04/15/22 04/15/22 04/15/22 14:37 14:37 14:37 WBC 14.82 H RBC 4.63 Hgb 13.4 Hct 40.1 MCV 86.6 MCH 28.9 MCHC 33.4 RDW Std Deviation 42.2 RDW Coeff of Froy 13.5 Plt Count 374 MPV 9.4 Immature Gran % (Auto) 0.4 Neut % (Auto) 81.0 Lymph % (Auto) 13.6 Dare % (Auto) 4.0 Eos % (Auto) 0.5 Baso % (Auto) 0.5 Neut # (Auto) 12.00 H Lymph # (Auto) 2.01 Dare # (Auto) 0.60 Eos # (Auto) 0.07 Baso # (Auto) 0.08 Immature Gran # (Auto) 0.06 H PT INR APTT PTT Ratio Sodium 137 Potassium 3.6 Chloride 102 Carbon Dioxide 23 Anion Gap 12 H BUN 19 Creatinine 1.27 H Est Cr Clr Drug Dosing Not Reportable Est GFR ( Amer) 57.8 Est GFR (Non-Af Amer) 49.9 BUN/Creatinine Ratio 15.0 Glucose 111 H Lactate Calcium 9.5 Total Bilirubin 0.4 Direct Bilirubin 0.0 AST 19 ALT 18 Alkaline Phosphatase 39 Total Protein 7.5 Albumin 4.3 Lipase 28 Cancelled Urine Color Urine Appearance Urine pH Ur Specific [place] Urine Protein Urine Glucose (UA) Urine Ketones Urine Blood Urine Nitrite Urine Bilirubin Urine Urobilinogen Ur Leukocyte Esterase Urine WBC (Auto) Urine RBC (Auto) U Hyaline Cast (Auto) U Epithel Cells (Auto) Urine Bacteria (Auto) Urine Mucus Urine Yeast POC Ur Test SARS-CoV-2, RNA, NAAT 04/15/22 04/15/22 04/15/22 14:51 14:51 18:15 WBC RBC Hgb Hct MCV MCH MCHC RDW Std Deviation RDW Coeff of Froy Plt Count MPV Immature Gran % (Auto) Neut % (Auto) Lymph % (Auto) Dare % (Auto) Eos % (Auto) Baso % (Auto) Neut # (Auto) Lymph # (Auto) Dare # (Auto) Eos # (Auto) Baso # (Auto) Immature Gran # (Auto) PT INR APTT PTT Ratio Sodium Potassium Chloride Carbon Dioxide Anion Gap BUN Creatinine Est Cr Clr Drug Dosing Est GFR ( Amer) Est GFR (Non-Af Amer) BUN/Creatinine Ratio Glucose Lactate Calcium Total Bilirubin Direct Bilirubin AST ALT Alkaline Phosphatase Total Protein Albumin Lipase Urine Color Dark Yellow Urine Appearance Turbid A Urine pH 6.5 Ur Specific [place] 1.024 Urine Protein 2+ H Urine Glucose (UA) Negative Urine Ketones Trace H Urine Blood 2+ H Urine Nitrite Negative Urine Bilirubin 1+ H Urine Urobilinogen Negative Ur Leukocyte Esterase 3+ H Urine WBC (Auto) >30 H Urine RBC (Auto) 10-30 H U Hyaline Cast (Auto) 0 U Epithel Cells (Auto) >30 H Urine Bacteria (Auto) 4+ H Urine Mucus Present A Urine Yeast Not Reportable POC Ur Test NEG SARS-CoV-2, RNA, NAAT NEGATIVE 04/15/22 04/16/22 04/16/22 18:18 00:37 07:20 WBC 16.43 H RBC 3.89 L Hgb 11.3 L Hct 33.7 L MCV 86.6 MCH 29.0 MCHC 33.5 RDW Std Deviation 43.6 RDW Coeff of Froy 13.8 Plt Count 280 MPV 9.3 L Immature Gran % (Auto) 0.3 Neut % (Auto) 86.7 Lymph % (Auto) 7.9 Dare % (Auto) 4.3 Eos % (Auto) 0.5 Baso % (Auto) 0.3 Neut # (Auto) 14.24 H Lymph # (Auto) 1.30 Dare # (Auto) 0.70 Eos # (Auto) 0.09 Baso # (Auto) 0.05 Immature Gran # (Auto) 0.05 H PT 10.3 INR 1.0 APTT 20.3 L 44.4 H PTT Ratio 0.7 1.6 Sodium Potassium Chloride Carbon Dioxide Anion Gap BUN Creatinine Est Cr Clr Drug Dosing Est GFR ( Amer) Est GFR (Non-Af Amer) BUN/Creatinine Ratio Glucose Lactate Calcium Total Bilirubin Direct Bilirubin AST ALT Alkaline Phosphatase Total Protein Albumin Lipase Urine Color Urine Appearance Urine pH Ur Specific [place] Urine Protein Urine Glucose (UA) Urine Ketones Urine Blood Urine Nitrite Urine Bilirubin Urine Urobilinogen Ur Leukocyte Esterase Urine WBC (Auto) Urine RBC (Auto) U Hyaline Cast (Auto) U Epithel Cells (Auto) Urine Bacteria (Auto) Urine Mucus Urine Yeast POC Ur Test SARS-CoV-2, RNA, NAAT 04/16/22 04/16/22 04/16/22 07:20 07:20 14:11 WBC RBC Hgb Hct MCV MCH MCHC RDW Std Deviation RDW Coeff of Froy Plt Count MPV Immature Gran % (Auto) Neut % (Auto) Lymph % (Auto) Dare % (Auto) Eos % (Auto) Baso % (Auto) Neut # (Auto) Lymph # (Auto) Dare # (Auto) Eos # (Auto) Baso # (Auto) Immature Gran # (Auto) PT INR APTT 42.5 H Pending PTT Ratio 1.5 Pending Sodium 134 L Potassium 3.9 Chloride 105 Carbon Dioxide 21 Anion Gap 8 BUN 12 Creatinine 0.86 D Est Cr Clr Drug Dosing 77.8 Est GFR ( Amer) 92.6 Est GFR (Non-Af Amer) 79.9 BUN/Creatinine Ratio 14.0 Glucose 105 H Lactate Calcium 7.7 L Total Bilirubin Direct Bilirubin AST ALT Alkaline Phosphatase Total Protein Albumin Lipase Urine Color Urine Appearance Urine pH Ur Specific [place] Urine Protein Urine Glucose (UA) Urine Ketones Urine Blood Urine Nitrite Urine Bilirubin Urine Urobilinogen Ur Leukocyte Esterase Urine WBC (Auto) Urine RBC (Auto) U Hyaline Cast (Auto) U Epithel Cells (Auto) Urine Bacteria (Auto) Urine Mucus Urine Yeast POC Ur Test SARS-CoV-2, RNA, NAAT 04/16/22 14:18 WBC RBC Hgb Hct MCV MCH MCHC RDW Std Deviation RDW Coeff of Froy Plt Count MPV Immature Gran % (Auto) Neut % (Auto) Lymph % (Auto) Dare % (Auto) Eos % (Auto) Baso % (Auto) Neut # (Auto) Lymph # (Auto) Dare # (Auto) Eos # (Auto) Baso # (Auto) Immature Gran # (Auto) PT INR APTT PTT Ratio Sodium Potassium Chloride Carbon Dioxide Anion Gap BUN Creatinine Est Cr Clr Drug Dosing Est GFR ( Amer) Est GFR (Non-Af Amer) BUN/Creatinine Ratio Glucose Lactate Pending Calcium Total Bilirubin Direct Bilirubin AST ALT Alkaline Phosphatase Total Protein Albumin Lipase Urine Color Urine Appearance Urine pH Ur Specific [place] Urine Protein Urine Glucose (UA) Urine Ketones Urine Blood Urine Nitrite Urine Bilirubin Urine Urobilinogen Ur Leukocyte Esterase Urine WBC (Auto) Urine RBC (Auto) U Hyaline Cast (Auto) U Epithel Cells (Auto) Urine Bacteria (Auto) Urine Mucus Urine Yeast POC Ur Test SARS-CoV-2, RNA, NAAT Diagnostic Findings I personally reviewed and interpreted the CT scan and agree with a nonspecific left colitis along with a near occlusive anterior branch portal vein thrombus CT OF THE ABDOMEN AND PELVIS WITH CONTRAST CLINICAL HISTORY: Right lower quadrant pain. COMPARISON STUDY: CT of the abdomen and pelvis June 09, 2018. TECHNIQUE: Following IV administration of 95 mL of Optiray, axial images of the abdomen and pelvis were obtained from the lung bases to the proximal femurs. Images were reviewed in the axial, sagittal, and coronal planes. IV contrast was administered without complication. Automated exposure control was utilized for the study. A dose lowering technique was utilized adhering to the principles of ALARA. CT DOSE: 254.79 mGy.cm FINDINGS: Lung bases are unremarkable. No pneumatosis, free air or portal venous gas is present. There is no biliary ductal dilatation status post cholecystectomy. A 1.6 cm intermediate attenuation inferior right hepatic lobe lesion on image 153 of [address] of June 09, 2018. This is benign given stability. A 7 mm hypodense lateral segment lesion is unchanged. This favors a cyst. There is near occlusive thrombus within the anterior branch of the right portal vein shown on axial image 86 of 411. The left portal vein is patent. There is possible minimal nonocclusive thrombus within the distal superior mesenteric vein extending into the main portal vein on axial image 114 of 411. There is no evidence for a bowel obstruction. The appendix is normal. There is wall thickening with moderate stranding and a small amount of fluid adjacent to the descending colon. There is no abscess. Moderate amount of stool within the colon and rectum is noted. There is no lymphadenopathy. No acute fracture or suspicious lesion within the visualized skeletal structures is present. The spleen, adrenal glands, kidneys and pancreas are unremarkable. There is no hydronephrosis. IMPRESSION: 1. Wall thickening with pericolonic inflammation of the descending colon. This represents a nonspecific colitis. No free air or abscess. 2. 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 Possible minimal thrombus within the distal superior mesenteric vein extending into the main portal vein. 3. Normal appendix. No bowel obstruction. Moderate amount of stool within the colon and rectum. PG Care Time/CCT Total # of Minutes Spent Total Time Spent with Patient: Total time spent is greater than 50% in coordination of care (as documented) at patient's floor/unit and/or counseling patient: Coding Level of Care Code 43676 Initial Inpt Care Lvl 2 Diagnoses Colitis K52.9 Portal vein thrombosis I81 Fibromyalgia M79.7 S/P cholecystectomy Z90.49
--- NOTE | 2022-04-16 14:40 | Hospitalist Progress Note ---
Date of Service April 16, 2022 Assessment & Plan (1) Portal vein thrombosis: Plan: Portal Vein Thrombosis Likely due to OCPs --CT ABD:Wall thickening with pericolonic inflammation of the descending colon. This represents a nonspecific colitis. No free air or abscess. 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 Possible minimal thrombus within the distal superior mesenteric vein extending into the main portal vein. Normal appendix. No bowel obstruction. Moderate amount of stool within the colon and rectum. --OCPs discontinued --Continue IV heparin Pain control Need further work for hypercoagulability as outpatient Appreciate GI Input (2) Colitis: Plan: Questionable Ischemic Colitis Lactic acidosis CT abd as above Empirically on Cipro, flagyl GI, Surgery consulted Continue IV fluids Trend lactate levels (3) UTI (urinary tract infection): Plan: Urine Culture: Gram positive cocci Continue Ciprofloxacin (4) Attention deficit disorder without mention of hyperactivity: Plan: chronic, stable. Continue home meds (5) Depression: Plan: Chronic, stable. Continue home meds (6) Asthma: Plan: No signs of exacerbation Nebs as needed (7) Fibromyalgia: Plan: chronic, stable Continue Imipramine (8) DVT prophylaxis: Plan: on IV Heparin drip Code Status Full Code Admission and Anticipated Discharge Date Admission Date: April 15, 2022 Subjective Patient is seen and examined at bedside States having abdominal pain associated with nausea and dizziness Drowsy during my encounter Denies any chest pain, shortness of breath Discussed with GI and surgery today Offers no other complaints Review of Systems Review of Systems: All systems reviewed & are unremarkable except as noted in Subjective Physical Exam Physical Exam: Physical Exam: Vitals signs as noted above General Appearance:Moderately built and nourished, no apparent distress Head: normocephalic, Atraumatic Eyes: normal inspection, EOMI Neck: supple, Trachea midline Respiratory/Chest: Normal breath sounds, CTA, No accessory muscle use Cardiovascular: S1, S2, No murmur Abdomen/GI:Soft, LLQ, Epigastric tenderness, no guarding, rigidity, Bowel sounds present Extremities/Musculoskeletal:normal inspection, no edema Neurologic/Psych:AAOX3, grossly no focal neurological deficits Skin: normal color, warm Results & Data Results & Data ([facility]) Vital Signs (Past 12 Hours) Vital Signs Temp Pulse Resp BP Pulse Ox O2 Del Method 04/16/22 07:26 36.7 C 89 12 117/74 99 Room Air Laboratory Results Short CBC 04/15/22 04/16/22 Range/Units 14:37 07:20 WBC 14.82 H 16.43 H (4.8-10.8) K/ul Hgb 13.4 11.3 L (12.0-16.0) g/dl Hct 40.1 33.7 L (34.1-44.9) % Plt Count 374 280 (130-400) K/uL BMP 04/15/22 04/16/22 14:37 07:20 Sodium 137 134 L Potassium 3.6 3.9 Chloride 102 105 Carbon Dioxide 23 21 BUN 19 12 Creatinine 1.27 H 0.86 D Glucose 111 H 105 H Calcium 9.5 7.7 L Liver Function 04/15/22 Range/Units 14:37 Total Bilirubin 0.4 (0.2-1.0) mg/dl Direct Bilirubin 0.0 (0-0.2) mg/dl AST 19 (13-39) U/L ALT 18 (7-52) U/L Alkaline Phosphatase 39 (34-104) U/L Albumin 4.3 (3.4-5.0) gm/dl Urine 04/15/22 Range/Units 14:51 Urine Color Dark Yellow Urine Appearance Turbid A (Clear) Urine pH 6.5 (4.5-7.5) Ur Specific [place] 1.024 (1.000-1.030) Urine Protein 2+ H (Negative) Urine Glucose (UA) Negative (Negative)
[2022-04-16 14:45] LABS: Partial Thromboplastin Ratio 1.6; Partial Thromboplastin Time 44.5 Seconds (21.0-31.0)
[2022-04-16] MEDS: HEPARIN SODIUM/DEXTROSE 25,000 UNITS/500 ML BAG IV SCH ×2 (15:53→17:09)
[2022-04-16] MEDS ORDERED: SODIUM CHLORIDE 0.9% 1000ML 1,000 ML IV SCH (16:12)
[2022-04-16] MEDS ORDERED: SODIUM CHLORIDE 0.9% 250 ML IV PRN (17:30)
[2022-04-16] MEDS: PANTOprazole 40 MG in SYRINGE 0 ML IV SCH ×2 (17:54→21:32)
--- NOTE | 2022-04-16 17:56 | Communication Note ---
Date of Service: April 16, 2022 Patient informed to have bloody bowel movements. Abdominal pain is controlled currently during my encounter. IV heparin held. Blood consent obtained. Informed RN to recheck vital signs. Will monitor H&H and transfuse PRBCs as needed. Will inform surgery and GI as well.
[2022-04-16 18:10] LABS: Hematocrit (blood only) 30.1 % (34.1-44.9); Hemoglobin 9.9 g/dl (12.0-16.0)
[2022-04-16] MEDS ORDERED: STAT IV STA (18:13)
[2022-04-16] MEDS ORDERED: OCTREOTIDE ACETATE 500 MCG in DEXTROSE 5% 100 ML IV SCH (18:15)
--- NOTE | 2022-04-16 18:15 | Communication Note ---
Date of Service: April 16, 2022 Discussed with : Amusement Equipment Operator medical numerical control operator after 5 PM. Will start on Octreotide drip as suggested. Also check for c diff if recurrence of diarrhea.
[2022-04-16] MEDS ORDERED: OCTREOTIDE ACETATE 50 MCG in SYRINGE 9.5 ML IV STA (18:17)
--- NOTE | 2022-04-16 18:22 | Communication Note ---
Date of Service: April 16, 2022 Received call back from Dr. Franks who discussed with . Will not start on Octreotide drip as recommended by GI.
--- NOTE | 2022-04-16 20:25 | Communication Note ---
Date of Service: April 16, 2022 This is a 46-year-old female who was seen earlier today by general surgery ([facility]) for nonspecific left-sided colitis as well as thrombus of a branch of the portal vein. Patient was noted to be hemodynamically stable at the time of this visit. At the time of this visit the patient was on anticoagulation due to her portal vein thrombosis. It was not felt that surgical intervention was required at that time General surgery was noted that patient has had multiple bloody bowel movements since her anticoagulation was started. I did visit with the patient at the bedside at approximately 7:00 PM this evening. Where she was noted to be hemodynamically stable and afebrile. She was normotensive without tachycardia. She was not tachypneic and her pulse ox was 100% on room air. As noted the patient has had approximately 5 bowel movements since her heparin drip was started. The primary service has since held the patient's heparin. It is noteworthy to mention that the patient has had serial hemoglobins checked and her hemoglobin went from 13.4-9.9 most recently. This most recent hemoglobin was drawn at approximately 6:00 PM this evening. In addition the patient has had serial lactate levels checked and her most recent lactate level at approximately 4:10 PM today was noted to be normal at 1.7. On physical exam the patient's abdomen is soft, nonrigid, nondistended. Patient did have some pain in her abdomen which was greatest with palpation just to the left and inferior to the umbilicus. She did have a small amount of rebound tenderness noted. It is nowhere the mention that the patient reported that she did not have a decreased appetite and actually ate solid food for dinner this evening which did not exacerbate any of her symptoms. At the present time as the patient is continued to be hemodynamically stable I do not feel surgical intervention is required as she does not have a surgical abdomen. The patient has been seen by gastroenterology and they have recommended patient be maintained on a liquid diet for the present time. I did discuss this with the treating hospitalist that they may consider downgrading her from solid food to liquids as recommended by GI.
[2022-04-16] MEDS: LORazepam 1 MG TAB PO PRN (21:30)
[2022-04-16] MEDS: buPROPion XL 150 MG TABCR PO SCH (21:30)
[2022-04-16] MEDS: IMIPRAMINE HCL 25 MG TAB PO SCH (21:31)
[2022-04-16] MEDS: buPROPion XL 300 MG TABCR PO SCH (21:31)
[2022-04-16 23:28] LABS: Hematocrit (blood only) 29.7 % (34.1-44.9); Hemoglobin 9.9 g/dl (12.0-16.0)
[2022-04-17 00:01] LABS: Partial Thromboplastin Time 27.1 Seconds (21.0-31.0)
[2022-04-17] MEDS: ACETAMINOPHEN 325 MG TAB PO PRN ×2 (00:46→19:29)
[2022-04-17] MEDS: SODIUM CHLORIDE 0.9% 1000ML 1,000 ML IV SCH (00:47)
[2022-04-17] MEDS: metroNIDAZOLE 500 MG TAB PO SCH ×3 (05:32→21:09)
--- NOTE | 2022-04-17 05:58 | Electrocardiogram Report ---
Test Reason : Blood Pressure : / mmHG Vent. Rate : 089 BPM Atrial Rate : 089 BPM P-R Int : 148 ms QRS Dur : 102 ms QT Int : 386 ms P-R-T Axes : 046 107 072 degrees QTc Int : 469 ms Normal sinus rhythm Rightward axis Borderline ECG When compared with ECG of 23-APR-2017 23:28, Incomplete right bundle branch block is no longer Present Confirmed by Quang Leo ([id number]) on 04/17/2022 5:57:47 AM Referred By: REFERRED SELF Confirmed By:Quang Leo
[2022-04-17 06:02] LABS: Basophils # (auto) 0.05 K/uL (0-0.2); Basophils % (auto) 0.4 %; Eosinophils # (auto) 0.21 K/uL (0-0.50); Eosinophils % (auto) 1.7 %; Hematocrit (blood only) 28.9 % (34.1-44.9); Hemoglobin 9.6 g/dl (12.0-16.0); Immature Granulocytes # (auto) 0.04 K/uL (0.00-0.02); Immature Granulocytes % (auto) 0.3 %; Lymphocytes # (auto) 1.59 K/uL (1.2-3.4); Lymphocytes % (auto) 12.8 %; Mean Corpuscular Hemoglobin 29.2 pg (25.0-34.0); Mean Corpuscular Hgb Conc 33.2 g/dL (32.0-36.0); Mean Corpuscular Volume 87.8 fL (80.0-100.0); Mean Platelet Volume 9.3 fL (9.4-12.3); Monocytes # (auto) 0.66 K/uL (0.24-0.82); Monocytes % (auto) 5.3 %; Neutrophils # (auto) 9.92 K/uL (1.4-6.5); Neutrophils % (auto) 79.5 %; Platelet Count 237 K/uL (130-400); RDW Coefficient of Variation 14.1 % (11.5-14.5); RDW Standard Deviation 45.1 fL (36.4-46.3); Red Blood Count 3.29 M/uL (3.93-5.22); White Blood Count 12.47 K/ul (4.8-10.8)
[2022-04-17 06:25] LABS: BUN Creatinine Ratio 7.6 (10-20); Calcium 6.9 mg/dl (8.5-10.1); Creatinine Clr Calc Pharmacy 84.7 ml/min; Est GFR (African American) 102.6 ml/min; Est GFR (Non-African American) 88.5 ml/min; Potassium 3.4 mmol/L (3.5-5.1)
[2022-04-17] MEDS: oxyCODONE HCL IR 5 MG TAB (IMMEDIATE RELEASE) PO PRN ×4 (06:55→21:10)
[2022-04-17] MEDS: PROMETHAZINE HCL 25 MG TAB PO PRN (06:55)
[2022-04-17] MEDS: CIPROFLOXACIN / D5W 400 MG/200 ML BAG IV SCH ×2 (07:56→21:10)
[2022-04-17] MEDS: busPIRone 5 MG TAB PO SCH ×3 (07:56→21:08)
[2022-04-17] MEDS: PANTOprazole 40 MG in SYRINGE 0 ML IV SCH ×2 (07:57→21:08)
--- NOTE | 2022-04-17 10:04 | Gastroenterology Progress Note ---
Date of Service April 17, 2022 Assessment & Plan (1) Colitis: Plan: Likely acute ischemic colitis secondary to intermittent fasting, likely slightly low fluid intake while doing vigorous exercise, methylphenidate use. Will advance to full liquids. (2) Portal vein thrombosis: Plan: Possibly secondary to OCs. Would DC. Less likely secondary to the ischemic colitis. Would hold heparin. Will re-image the clot with high level liver imaging in a few days. Will plan for MRI at that time. Eventual OP hematology management of anticoagulation. Plan As above. Will continue to follow closely. Admission and Anticipated Discharge Date Admission Date: April 15, 2022 Supervising Physician Co-Signing Physician Notes Attg add: I interviewed and examined pt, reviewed chart and labs. Pt with decre ased abd pain, but still requiring narcotics every 4-5 hours. + nausea, decr appetite. Rectal bleeding last night, heparin d/c'd. On exam, she is more awake than yesterday but pretty drowsy. Her abdomen is less tender than yesterday - she has diffuse voluntary guarding and appears mildly hyperesthetic to light touch, but no rebound or guarding. A/P: Ischemic colitis - likely dehydration from vigorous exercise/intermittent fasting, stimulant use Segmental PVT, possible pylephlebitis - likely secondary to ischemic colitis, OCP's Rectal bleeding on ac for segmental PVT - Hold anti coag for now. Plan to reimage liver in 2-3 days and make decision about resuming anticoagualation based on this imaging - Abx, bowel rest for ischemic colitis - currently on full liquids, anticipate extended abx course due to ? pylephlebitis - D/c OCPs, hold Ritalin Subjective 46, female, admitted 828 for abdominal pain. Rectal bleeding since arrival. CT with ischemic colitis and right portal vein thrombosis. Was heparinized but experienced further rectal bleeding overnight with significant drop in hemoglobin from 13->9.6. Review of Systems Review of Systems: ROS: Gen: Denies weakness, fevers, weight loss Eyes: No eye redness, or pain, no recent vision changes Resp: No SOB, no cough Cardio: No palpitations/irregular beats, no chest pain GI: See HPI : Denies pain on urination Skin: No jaundice, itching or new rashes Physical Exam Constitutional: well developed, well nourished and + acute distress (+ abdominal pain) Eyes: PERRL, conjunctivae normal, anicteric sclerae ENMT: external ear and nose normal, oropharynx normal Neck: trachea midline, no thyromegaly Respiratory: normal respiratory effort, lungs clear to auscultation Cardiovascular: RRR, no murmur, no edema Gastrointestinal (Abdomen): Nondistended, hypoactive bowel sounds, exquisitely tender in the suprapubic and left lower quadrant. Skin: no rashes, warm and dry Neurologic: PERRL, EOMI, accommodation nl, no face palsy, no dysarthria Lymphatic: no cervical or axillary lymphadenopathy Results & Data ([facility]) Vital Signs (Past 12 Hours) Vital Signs Temp Pulse Resp BP Pulse Ox O2 Del Method 04/16/22 23:06 36.4 C L 87 18 92/57 L 97 Room Air Laboratory Results CTAP w IV 04/15/22: 1. Wall thickening with pericolonic inflammation of the descending colon. This represents a nonspecific colitis. No free air or abscess. 2. 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 Possible minimal thrombus within the distal superior mesenteric vein extending into the main portal vein. 3. Normal appendix. No bowel obstruction. Moderate amount of stool within the colon and rectum. Diagnostic Findings WBC 12.4, Hb 9.6, HCT 28.9, PLT 237, PT 27, INR 1, NA 136, K3.4, CL 108, CO2 23, BUN 6, CR 0.79, glucose 98.
[2022-04-17] MEDS ORDERED: MoRPHine SULFATE 2 MG/ML CARP IV PRN (10:10)
[2022-04-17] MEDS ORDERED: PROMETHAZINE HCL 6.25 MG in SODIUM CHLORIDE 0.9% 50 ML IV PRN (10:35)
[2022-04-17] MEDS: NSS + 20MEQ KCL 20 MEQ/1,000 ML BAG IV SCH ×2 (10:36→23:20)
[2022-04-17] MEDS: POTASSIUM CHLORIDE / WTR 10 MEQ/100 ML PLCT IV SCH ×2 (11:20→12:55)
[2022-04-17 11:41] LABS: Hematocrit (blood only) 31.9 % (34.1-44.9); Hemoglobin 10.6 g/dl (12.0-16.0)
--- NOTE | 2022-04-17 13:33 | Surgery Progress Note ---
Date of Service April 17, 2022 Assessment & Plan (1) Colitis: Plan: 46-year-old female with colitis, C. difficile negative. Could represent inflammatory bowel disease such as ulcerative colitis versus ischemic colitis. No surgical intervention at this time Continue antibiotics and supportive care Consider repeat imaging versus flex sig as symptoms persist Surgery will continue to follow, call with questions or concerns (2) Portal vein thrombosis: Admission and Anticipated Discharge Date Admission Date: April 15, 2022 Subjective 46-year-old female admitted with colitis and right portal vein thrombosis. Multiple loose bloody bowel movements overnight, even after stopping heparin. Abdominal pain slightly worse than yesterday but better than when she came in. Physical Exam Constitutional: WD/WN, vitals as above Gastrointestinal (Abdomen): Percussion/Palpation: + abdomen tender (Left lower quadrant), + guarding (Localized guarding left lower quadrant) and abdomen soft; abdomen not rigid and no hepatosplenomegaly Results & Data ([facility]) Vital Signs (Past 12 Hours) Vital Signs Temp Pulse Resp BP Pulse Ox O2 Del Method 04/17/22 11:06 36.7 C 90 18 133/82 100 Room Air Laboratory Results Laboratory Results - last 24 hr 04/16/22 04/16/22 04/16/22 07:20 14:11 14:18 WBC RBC Hgb Hct MCV MCH MCHC RDW Std Deviation RDW Coeff of Froy Plt Count MPV Immature Gran % (Auto) Neut % (Auto) Lymph % (Auto) [place] % (Auto) Eos % (Auto) Baso % (Auto) Neut # (Auto) Lymph # (Auto) [place] # (Auto) Eos # (Auto) Baso # (Auto) Immature Gran # (Auto) APTT 44.5 H PTT Ratio 1.6 Sodium Potassium Chloride Carbon Dioxide Anion Gap BUN Creatinine Est Cr Clr Drug Dosing Est GFR ( Amer) Est GFR (Non-Af Amer) BUN/Creatinine Ratio Glucose Lactate 2.2 H* Calcium Stl C. diff Tox B Gene Blood Type Blood Type Recheck A Positive Antibody Screen Crossmatch 04/16/22 04/16/22 04/16/22 16:11 17:58 17:58 WBC RBC Hgb 9.9 L Hct 30.1 L MCV MCH MCHC RDW Std Deviation RDW Coeff of Froy Plt Count MPV Immature Gran % (Auto) Neut % (Auto) Lymph % (Auto) [place] % (Auto) Eos % (Auto) Baso % (Auto) Neut # (Auto) Lymph # (Auto) [place] # (Auto) Eos # (Auto) Baso # (Auto) Immature Gran # (Auto) APTT PTT Ratio Sodium Potassium Chloride Carbon Dioxide Anion Gap BUN Creatinine Est Cr Clr Drug Dosing Est GFR ( Amer) Est GFR (Non-Af Amer) BUN/Creatinine Ratio Glucose Lactate 1.7 Calcium Stl C. diff Tox B Gene Blood Type A Positive Blood Type Recheck Antibody Screen NEGATIVE Crossmatch See Detail 04/16/22 04/16/22 04/17/22 23:01 23:01 05:38 WBC 12.47 H RBC 3.29 L Hgb 9.9 L 9.6 L Hct 29.7 L 28.9 L MCV 87.8 MCH 29.2 MCHC 33.2 RDW Std Deviation 45.1 RDW Coeff of Froy 14.1 Plt Count 237 MPV 9.3 L Immature Gran % (Auto) 0.3 Neut % (Auto) 79.5 Lymph % (Auto) 12.8 [place] % (Auto) 5.3 Eos % (Auto) 1.7 Baso % (Auto) 0.4 Neut # (Auto) 9.92 H Lymph # (Auto) 1.59 [place] # (Auto) 0.66 Eos # (Auto) 0.21 Baso # (Auto) 0.05 Immature Gran # (Auto) 0.04 H APTT 27.1 PTT Ratio 1.0 Sodium Potassium Chloride Carbon Dioxide Anion Gap BUN Creatinine Est Cr Clr Drug Dosing Est GFR ( Amer) Est GFR (Non-Af Amer) BUN/Creatinine Ratio Glucose Lactate Calcium Stl C. diff Tox B Gene Blood Type Blood Type Recheck Antibody Screen Crossmatch 04/17/22 04/17/22 04/17/22 05:38 05:38 09:05 WBC RBC Hgb Hct MCV MCH MCHC RDW Std Deviation RDW Coeff of Froy Plt Count MPV Immature Gran % (Auto) Neut % (Auto) Lymph % (Auto) [place] % (Auto) Eos % (Auto) Baso % (Auto) Neut # (Auto) Lymph # (Auto) [place] # (Auto) Eos # (Auto) Baso # (Auto) Immature Gran # (Auto) APTT 27.0 PTT Ratio 1.0 Sodium 136 Potassium 3.4 L Chloride 108 H Carbon Dioxide 23 Anion Gap 5 BUN 6 Creatinine 0.79 Est Cr Clr Drug Dosing 84.7 Est GFR ( Amer) 102.6 Est GFR (Non-Af Amer) 88.5 BUN/Creatinine Ratio 7.6 L Glucose 98 Lactate Calcium 6.9 L Stl C. diff Tox B Gene Negative Cdiff Gene Blood Type Blood Type Recheck Antibody Screen Crossmatch 04/17/22 11:30 WBC RBC Hgb 10.6 L Hct 31.9 L MCV MCH MCHC RDW Std Deviation RDW Coeff of Froy Plt Count MPV Immature Gran % (Auto) Neut % (Auto) Lymph % (Auto) [place] % (Auto) Eos % (Auto) Baso % (Auto) Neut # (Auto) Lymph # (Auto) [place] # (Auto) Eos # (Auto) Baso # (Auto) Immature Gran # (Auto) APTT PTT Ratio Sodium Potassium Chloride Carbon Dioxide Anion Gap BUN Creatinine Est Cr Clr Drug Dosing Est GFR ( Amer) Est GFR (Non-Af Amer) BUN/Creatinine Ratio Glucose Lactate Calcium Stl C. diff Tox B Gene Blood Type Blood Type Recheck Antibody Screen Crossmatch PG Care Time/CCT Total # of Minutes Spent Total Time Spent with Patient: Total time spent is greater than 50% in coordination of care (as documented) at patient's floor/unit and/or counseling patient: Coding Level of Care Code 71258 Subseq Hosp Care Lvl 2 Diagnoses Colitis K52.9 Portal vein thrombosis I81
--- NOTE | 2022-04-17 14:31 | Electrocardiogram Report ---
Test Reason : Blood Pressure : / mmHG Vent. Rate : 086 BPM Atrial Rate : 086 BPM P-R Int : 154 ms QRS Dur : 104 ms QT Int : 394 ms P-R-T Axes : 061 105 068 degrees QTc Int : 471 ms Normal sinus rhythm Rightward axis Borderline ECG When compared with ECG of 16-APR-2022 09:23, No significant change was found Confirmed by Quang Leo ([id number]) on 04/17/2022 2:30:34 PM Referred By: REFERRED SELF Confirmed By:Quang Leo
--- NOTE | 2022-04-17 15:53 | Hospitalist Progress Note ---
Date of Service April 17, 2022 Assessment & Plan (1) Portal vein thrombosis: Plan: Portal Vein Thrombosis Likely due to OCPs --CT ABD:Wall thickening with pericolonic inflammation of the descending colon. This represents a nonspecific colitis. No free air or abscess. 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 Possible minimal thrombus within the distal superior mesenteric vein extending into the main portal vein. Normal appendix. No bowel obstruction. Moderate amount of stool within the colon and rectum. --OCPs discontinued -- IV heparin held due to GI bleed Pain control Need further work for hypercoagulability as outpatient Appreciate GI Input To hold IV heparin until no bleeding for 24 hours Plan to repeat imaging to reassess portal vein thrombosis. Needs outpatient hematology evaluation for hypercoagulation (2) Colitis: Plan: Questionable Ischemic Colitis Acute GI bleeding Lactic acidosis CT abd as above Stool for C. difficile negative Continue Cipro, flagyl GI, Surgery consulted Continue IV fluids Trend lactate levels No surgical intervention needed currently as per surgery Monitor H&H and transfuse PRBCs as needed (3) UTI (urinary tract infection): Plan: Urine Culture: Gram positive cocci Continue Ciprofloxacin (4) Attention deficit disorder without mention of hyperactivity: Plan: chronic, stable. Continue home meds (5) Depression: Plan: Chronic, stable. Continue home meds (6) Asthma: Plan: No signs of exacerbation Nebs as needed (7) Fibromyalgia: Plan: chronic, stable Continue Imipramine (8) DVT prophylaxis: Plan: SCDs Re: GI bleed Code Status Full Code Admission and Anticipated Discharge Date Admission Date: April 15, 2022 Subjective Patient is seen and examined at bedside Complains of abdominal pain associate with nausea this morning Also reports bloody bowel movement this morning Denies chest pain, dyspnea Family at bedside Review of Systems Review of Systems: All systems reviewed & are unremarkable except as noted in Subjective Physical Exam Physical Exam: Physical Exam: Vitals signs as noted above General Appearance:Moderately built and nourished, no apparent distress Head: normocephalic, Atraumatic Eyes: normal inspection, EOMI Neck: supple, Trachea midline Respiratory/Chest: Normal breath sounds, CTA, No accessory muscle use Cardiovascular: S1, S2, No murmur Abdomen/GI:Soft, LLQ, Epigastric tenderness, no guarding, rigidity, Bowel sounds present Extremities/Musculoskeletal:normal inspection, no edema Neurologic/Psych:AAOX3, grossly no focal neurological deficits Skin: normal color, warm Results & Data Results & Data ([facility]) Vital Signs (Past 12 Hours) Vital Signs Temp Pulse Resp BP Pulse Ox O2 Del Method 04/17/22 15:51 37 C 98 H 18 133/80 99 Room Air 04/17/22 11:06 36.7 C 90 18 133/82 100 Room Air Laboratory Results Short CBC 04/16/22 04/16/22 04/17/22 Range/Units 17:58 23:01 05:38 WBC 12.47 H (4.8-10.8) K/ul Hgb 9.9 L 9.9 L 9.6 L (12.0-16.0) g/dl Hct 30.1 L 29.7 L 28.9 L (34.1-44.9) % Plt Count 237 (130-400) K/uL 04/17/22 Range/Units 11:30 WBC (4.8-10.8) K/ul Hgb 10.6 L (12.0-16.0) g/dl Hct 31.9 L (34.1-44.9) % Plt Count (130-400) K/uL BMP 04/17/22 05:38 Sodium 136 Potassium 3.4 L Chloride 108 H Carbon Dioxide 23 BUN 6 Creatinine 0.79 Glucose 98 Calcium 6.9 L
[2022-04-17 16:16] LABS: Hematocrit (blood only) 30.5 % (34.1-44.9); Hemoglobin 10.4 g/dl (12.0-16.0)
[2022-04-17] MEDS: buPROPion XL 150 MG TABCR PO SCH (21:08)
[2022-04-17] MEDS: IMIPRAMINE HCL 25 MG TAB PO SCH (21:09)
[2022-04-17] MEDS: buPROPion XL 300 MG TABCR PO SCH (21:09)
[2022-04-17] MEDS: LORazepam 1 MG TAB PO PRN (21:10)
[2022-04-18 00:21] LABS: Hematocrit (blood only) 28.6 % (34.1-44.9); Hemoglobin 9.6 g/dl (12.0-16.0)
[2022-04-18] MEDS: ACETAMINOPHEN 325 MG TAB PO PRN ×3 (05:59→18:39)
[2022-04-18] MEDS: metroNIDAZOLE 500 MG TAB PO SCH ×3 (06:00→21:17)
[2022-04-18 06:51] LABS: Hematocrit (blood only) 30.3 % (34.1-44.9); Hemoglobin 10.1 g/dl (12.0-16.0); Mean Corpuscular Hemoglobin 29.1 pg (25.0-34.0); Mean Corpuscular Hgb Conc 33.3 g/dL (32.0-36.0); Mean Corpuscular Volume 87.3 fL (80.0-100.0); Mean Platelet Volume 9.4 fL (9.4-12.3); Platelet Count 271 K/uL (130-400); RDW Standard Deviation 44.6 fL (36.4-46.3); Red Blood Count 3.47 M/uL (3.93-5.22); White Blood Count 13.37 K/ul (4.8-10.8)
[2022-04-18 07:07] LABS: Partial Thromboplastin Time 27.2 Seconds (21.0-31.0)
[2022-04-18 07:31] LABS: BUN Creatinine Ratio 3.8 (10-20); Calcium 7.2 mg/dl (8.5-10.1); Creatinine Clr Calc Pharmacy 85.8 ml/min; Est GFR (African American) 104.2 ml/min; Est GFR (Non-African American) 89.9 ml/min; Potassium 3.5 mmol/L (3.5-5.1)
[2022-04-18] MEDS: NSS + 20MEQ KCL 20 MEQ/1,000 ML BAG IV SCH ×3 (08:05→18:40)
[2022-04-18] MEDS: PANTOprazole 40 MG in SYRINGE 0 ML IV SCH ×2 (08:06→21:13)
[2022-04-18] MEDS: busPIRone 5 MG TAB PO SCH ×3 (08:06→21:17)
[2022-04-18] MEDS: CIPROFLOXACIN / D5W 400 MG/200 ML BAG IV SCH ×2 (08:06→21:13)
[2022-04-18] MEDS: oxyCODONE HCL IR 5 MG TAB (IMMEDIATE RELEASE) PO PRN ×2 (08:12→21:16)
[2022-04-18] MEDS ORDERED: POTASSIUM CHLORIDE CRTAB 20 MEQ TABCR PO ONE (09:57)
--- NOTE | 2022-04-18 10:16 | Surgery Progress Note ---
Date of Service April 18, 2022 Assessment & Plan (1) Colitis: Plan: Patient here with colitis and portal vein thrombus WBC 13, Hbg 10.1. Continues with abdominal pain and nausea, however improved from admission Bloody BM's are improving as well Appreciate GI's assistance with patient No plans for surgical intervention. Continue abx and supportive care Considering repeat imaging in future if continues with ongoing symptoms (2) Portal vein thrombosis: Admission and Anticipated Discharge Date Admission Date: April 15, 2022 Supervising Physician Co-Signing Physician Notes Patient seen and examined, agree with above. Admitted with colitis and branch portal vein thrombosis. Feeling slightly better today, still having blood in her vomitus but this is decreasing. On exam she is afebrile stable vitals. Tender to palpation in left lower quadrant, slightly improved from yesterday. WBC downtrending, hematocrit stable. No surgical intervention at this time. Will need endoscopy at some point either as an inpatient or outpatient. Hold on advancing diet till symptoms improve. Subjective Patient continues with abdominal pain and nausea. Having bloody BMs but improving. Physical Exam Physical Exam: awake/alert, no acute distress Gastrointestinal (Abdomen): Inspection/Auscultation: abdomen not distended Percussion/Palpation: + abdomen tender (ttp LLQ), + guarding and abdomen soft Results & Data ([facility]) Vital Signs (Past 12 Hours) Vital Signs Temp Pulse Pulse Resp BP Pulse Ox O2 Del Method 04/17/22 23:41 36.6 C 86 18 99/62 L 97 Room Air 04/17/22 22:44 87 PG Care Time/CCT Total # of Minutes Spent Total Time Spent with Patient: Total time spent is greater than 50% in coordination of care (as documented) at patient's floor/unit and/or counseling patient: Coding Level of Care Code 00133 Subseq Hosp Care Lvl 1 Diagnoses Colitis K52.9 Portal vein thrombosis I81
[2022-04-18] MEDS: DAPTOmycin 250 MG in SYRINGE 0 ML IV SCH (13:13)
[2022-04-18 14:53] LABS: Appearance Urine Clear (Clear); Bacteria Urine Automated Negative (Negative); Bilirubin Urine Negative (Negative); Blood Urine 2+ (Negative); Cast Urine Automated 0 /lpf (0-5); Color Urine Yellow; Glucose Urine UA Negative (Negative); Ketones Urine Negative (Negative); Leukocyte Esterase Urine Trace (Negative); Nitrite Urine Negative (Negative); Protein Urine Negative (Negative); Specific Gravity Urine 1.005 (1.000-1.030); Urobilinogen Urine Negative (Negative); pH Urine 6.5 (4.5-7.5)
--- NOTE | 2022-04-18 16:32 | Hospitalist Progress Note ---
Date of Service April 18, 2022 Assessment & Plan (1) Portal vein thrombosis: Plan: Portal Vein Thrombosis Likely due to OCPs --CT ABD:Wall thickening with pericolonic inflammation of the descending colon. This represents a nonspecific colitis. No free air or abscess. 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 Possible minimal thrombus within the distal superior mesenteric vein extending into the main portal vein. Normal appendix. No bowel obstruction. Moderate amount of stool within the colon and rectum. --OCPs discontinued -- IV heparin held due to GI bleed Pain control Need further work for hypercoagulability as outpatient Appreciate GI Input To hold IV heparin until no bleeding for 24 hours Plan to repeat imaging to reassess portal vein thrombosis. Needs outpatient hematology evaluation for hypercoagulation (2) Colitis: Plan: Questionable Ischemic Colitis Acute GI bleeding Lactic acidosis CT abd as above Stool for C. difficile negative Continue Cipro, flagyl GI, Surgery consulted Continue IV fluids Trend lactate levels No surgical intervention needed currently as per surgery Monitor H&H and transfuse PRBCs as needed Rectal bleeding slowly improving Hb stable (3) UTI (urinary tract infection): Plan: Urine Culture: Staph epidermidis on Dapto (4) Attention deficit disorder without mention of hyperactivity: Plan: chronic, stable. Continue home meds (5) Depression: Plan: Chronic, stable. Continue home meds (6) Asthma: Plan: No signs of exacerbation Nebs as needed (7) Fibromyalgia: Plan: chronic, stable Continue Imipramine (8) DVT prophylaxis: Plan: SCDs Re: GI bleed Code Status Full Code Admission and Anticipated Discharge Date Admission Date: April 15, 2022 Subjective Patient is seen and examined at bedside Abdominal pain, nausea and rectal bleeding slightly better today Admits to having dysuria Has poor appetite Family at bedside Denies chest pain, dyspnea Hb stable Review of Systems Review of Systems: All systems reviewed & are unremarkable except as noted in Subjective Physical Exam Physical Exam: Physical Exam: Vitals signs as noted above General Appearance:Moderately built and nourished, no apparent distress Head: normocephalic, Atraumatic Eyes: normal inspection, EOMI Neck: supple, Trachea midline Respiratory/Chest: Normal breath sounds, CTA, No accessory muscle use Cardiovascular: S1, S2, No murmur Abdomen/GI:Soft, LLQ, Epigastric tenderness, no guarding, rigidity, Bowel sounds present Extremities/Musculoskeletal:normal inspection, no edema Neurologic/Psych:AAOX3, grossly no focal neurological deficits Skin: normal color, warm Results & Data Results & Data ([facility]) Vital Signs (Past 12 Hours) Vital Signs Temp Pulse Resp BP Pulse Ox O2 Del Method 04/18/22 15:59 36.5 C 73 18 137/82 99 Room Air 04/18/22 12:37 36.8 C 84 20 127/77 100 Laboratory Results Short CBC 04/18/22 04/18/22 Range/Units 00:09 06:32 WBC 13.37 H (4.8-10.8) K/ul Hgb 9.6 L 10.1 L (12.0-16.0) g/dl Hct 28.6 L 30.3 L (34.1-44.9) % Plt Count 271 (130-400) K/uL BMP 04/18/22 06:32 Sodium 135 L Potassium 3.5 Chloride 106 Carbon Dioxide 25 BUN 3 L Creatinine 0.78 Glucose 100 H Calcium 7.2 L Urine 04/18/22 Range/Units 14:15 Urine Color Yellow Urine Appearance Clear (Clear) Urine pH 6.5 (4.5-7.5) Ur Specific [place] 1.005 (1.000-1.030) Urine Protein Negative (Negative) Urine Glucose (UA) Negative (Negative)
--- NOTE | 2022-04-18 17:18 | Gastroenterology Progress Note ---
Date of Service April 18, 2022 Assessment & Plan (1) Colitis: Plan: Likely acute ischemic colitis secondary to intermittent fasting, likely slightly low fluid intake while doing vigorous exercise, methylphenidate use. Will arrange unprepped colonoscopy by Dr. Corcoran tomorrow for eval of the colon mucosa, to r/o other etiologies of pain and rectal bleeding. NPO after midnight. (2) Portal vein thrombosis: Plan: Possibly secondary to OCs. Would DC. Less likely secondary to the ischemic colitis. Would hold heparin. Plan to reimage w MRI liver to reassess the clot and get a more detailed imaging of the liver to exclude liver lesions or other possible etiology of PVT. Plan to order after colonoscopy is complete. Eventual OP hematology management of anticoagulation., also OP fibroscan Plan As above. Will continue to follow closely. Admission and Anticipated Discharge Date Admission Date: April 15, 2022 Supervising Physician Co-Signing Physician Notes Please see my separate note. Subjective 46-year-old female admitted on 04/[address] with portal vein thrombosis and descending colon colitis. Was heparinized briefly but then had rectal bleeding. Heparin stopped. Experienced about 5 episodes of bright red rectal bleeding yesterday. About 2 episodes smaller volume slightly darker in color today. Continues with significant left lower quadrant abdominal pain. Has been taking one po oxycodone 10mg. Has relief of the pain for about 2 hours then the pain slowly builds over the next hour back to full level 7 or 8 left lower quadrant abdominal pain until then dosing interval. Currently taking the oxycodone 1 every 4 hours. Tolerating liquid diet well. Asks to have her diet advanced. She is afebrile but has continued leukocytosis on Dapto/cipro/flagyl. Review of Systems Review of Systems: ROS: Gen: + mild weakness, Able to ambulate to the bathroom independently, No fevers, weight loss Eyes: No eye redness, or pain, no recent vision changes Resp: No SOB, no cough Cardio: Brief episodes of chest pain since yesterday, lasting less than a minute, but occurring frequently. No palpitations/irregular beats, no chest pain GI: See HPI : Denies pain on urination Skin: No jaundice, itching or new rashes Physical Exam Constitutional: well developed, well nourished and + acute distress (+ abdominal pain) Eyes: PERRL, conjunctivae normal, anicteric sclerae ENMT: external ear and nose normal, oropharynx normal Neck: trachea midline, no thyromegaly Respiratory: normal respiratory effort, lungs clear to auscultation Cardiovascular: RRR, no murmur, no edema Gastrointestinal (Abdomen): Inspection/Auscultation: abdomen normal to inspection and normal bowel sounds; abdomen not distended Percussion/Palpation: + abdomen tender (exquisitely in the LLQ) and + guarding (voluntary) Skin: no rashes, warm and dry Neurologic: PERRL, EOMI, accommodation nl, no face palsy, no dysarthria Lymphatic: no cervical or axillary lymphadenopathy Results & Data ([facility]) Vital Signs (Past 12 Hours) Vital Signs Temp Pulse Resp BP Pulse Ox O2 Del Method 04/18/22 15:59 36.5 C 73 18 137/82 99 Room Air 04/18/22 12:37 36.8 C 84 20 127/77 100 Laboratory Results WBC 13, Hb 10.1, HCT 30, PLT S2 71, BUN 27, CR 1, NA 135, K3.5, CL 106, CO2 25, BUN 31, creatinine 0.78 Diagnostic Findings CTAP w IV contrast 04/15/22: 1. Wall thickening with pericolonic inflammation of the descending colon. This represents a nonspecific colitis. No free air or abscess. 2. 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 Possible minimal thrombus within the distal superior mesenteric vein extending into the main portal vein. 3. Normal appendix. No bowel obstruction. Moderate amount of stool within the colon and rectum.
--- NOTE | 2022-04-18 17:21 | Gastroenterology Progress Note ---
Date of Service April 18, 2022 Assessment & Plan Admission and Anticipated Discharge Date Admission Date: April 15, 2022 Subjective Has continued improvement in abdominal pain, but she continues to report pain as severe, and is taking narcotics regularly. She had two scant bloody BM's this am, hgb stable. She had discomfort with full liquids for breakfast, and did not eat breakfast. She was able to tolerate lunch, although she has nausea. Began IV dapto for UTI staph epidermidis. On exam, she appears comfortable and is seated. She is more awake than previous. VSS Afeb. CV: RRR Resp: CTA Abd: soft. She reports diffuse abdominal tenderness with even touch, but she is able to move in bed from seated to lying position without apparent difficulty. She has volu guarding diffusely. She has no rebound or guarding. Labs reviewed CCB with stable hgb 10, WBC 13. Ucx staph epidemerdis. BMP WNL. A/P Ischemic colitis Segmental PVT - Cont abx (currently on IV cipro + oral Flagyl). Consider change oral Flagyl to IV due to nausea. - She reports persistent pain and is regularly requiring narcs -- plan flex sig tomorrow to eval severity of colitis. - Hold anticoag given rectal bleeding. Liver imaging tomorrow to re-eval PVT. Results & Data ([facility]) Vital Signs (Past 12 Hours) Vital Signs Temp Pulse Resp BP Pulse Ox O2 Del Method 04/18/22 15:59 36.5 C 73 18 137/82 99 Room Air 04/18/22 12:37 36.8 C 84 20 127/77 100
[2022-04-18] MEDS: LORazepam 1 MG TAB PO PRN (21:16)
[2022-04-18] MEDS: buPROPion XL 150 MG TABCR PO SCH (21:17)
[2022-04-18] MEDS: buPROPion XL 300 MG TABCR PO SCH (21:17)
[2022-04-18] MEDS: IMIPRAMINE HCL 25 MG TAB PO SCH (21:17)
[2022-04-19] MEDS: NSS + 20MEQ KCL 20 MEQ/1,000 ML BAG IV SCH ×4 (02:00→23:17)
[2022-04-19] MEDS: metroNIDAZOLE 500 MG TAB PO SCH (05:52)
[2022-04-19 07:02] LABS: Basophils # (auto) 0.05 K/uL (0-0.2); Basophils % (auto) 0.4 %; Eosinophils # (auto) 0.19 K/uL (0-0.50); Eosinophils % (auto) 1.6 %; Hematocrit (blood only) 30.1 % (34.1-44.9); Hemoglobin 10.2 g/dl (12.0-16.0); Immature Granulocytes # (auto) 0.08 K/uL (0.00-0.02); Immature Granulocytes % (auto) 0.7 %; Lymphocytes # (auto) 1.48 K/uL (1.2-3.4); Lymphocytes % (auto) 12.7 %; Mean Corpuscular Hemoglobin 29.1 pg (25.0-34.0); Mean Corpuscular Hgb Conc 33.9 g/dL (32.0-36.0); Mean Corpuscular Volume 85.8 fL (80.0-100.0); Mean Platelet Volume 9.7 fL (9.4-12.3); Monocytes % (auto) 6.9 %; Neutrophils # (auto) 9.05 K/uL (1.4-6.5); Neutrophils % (auto) 77.7 %; Platelet Count 305 K/uL (130-400); RDW Coefficient of Variation 13.8 % (11.5-14.5); RDW Standard Deviation 43.5 fL (36.4-46.3); Red Blood Count 3.51 M/uL (3.93-5.22); White Blood Count 11.65 K/ul (4.8-10.8)
[2022-04-19 07:16] LABS: Partial Thromboplastin Time 28.5 Seconds (21.0-31.0)
[2022-04-19 07:23] LABS: BUN Creatinine Ratio 4.3 (10-20); Calcium 7.6 mg/dl (8.5-10.1); Creatinine Clr Calc Pharmacy 95.6 ml/min; Est GFR (African American) 118.7 ml/min; Est GFR (Non-African American) 102.5 ml/min; Magnesium 1.4 mg/dl (1.7-2.4); Potassium 3.6 mmol/L (3.5-5.1)
[2022-04-19] MEDS: ACETAMINOPHEN 325 MG TAB PO PRN ×2 (07:55→23:24)
[2022-04-19] MEDS: CIPROFLOXACIN / D5W 400 MG/200 ML BAG IV SCH ×2 (08:56→20:27)
[2022-04-19] MEDS: busPIRone 5 MG TAB PO SCH ×3 (08:56→20:25)
[2022-04-19] MEDS: PANTOprazole 40 MG in SYRINGE 0 ML IV SCH ×2 (08:56→20:30)
--- NOTE | 2022-04-19 09:24 | Anesthesiology Consultation ---
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 Consults Requested none Proposed Anesthesia Risk / Benefits Reviewed With: PT / POA / Parent / Guardian, Accepts Plan and Informed Consent Obtained History Surgery Operation Date: 04/19/22 17:25 Proposed Procedures p Colonoscopy Dr Corcoran - Alfonso Corcoran MD Height/Weight Height: 5 ft 7 in Weight: 69 kg Allergies Allergy/AdvReac Type Severity Reaction Status Date / Time Penicillins Allergy Severe DIFFICULTY Verified 04/15/22 15:21 BREATHING-ANAPHYLAXIS mushroom Allergy Unknown ANAPHYLAXIS Verified 04/15/22 15:21 morphine AdvReac Intermediate EMESIS Verified 04/15/22 15:21 Medications Home Medications Medication Instructions Recorded Confirmed Last Taken bupropion HCl 150 mg 24 hr tablet, 150 mg PO HS 04/15/22 04/15/22 Unknown extended release bupropion HCl 300 mg 24 hr tablet, 300 mg PO HS 04/15/22 04/15/22 Unknown extended release buspirone 10 mg tablet 10 mg PO TID 04/15/22 04/15/22 Unknown dexmethylphenidate 10 mg tablet 10 mg PO TID 04/15/22 04/15/22 Unknown imipramine HCl 50 mg tablet 125 mg PO HS 04/15/22 04/15/22 Unknown lorazepam 1 mg tablet 1 mg PO HS PRN Sleep 04/15/22 04/15/22 Unknown norethindrone acetate 1 mg-ethinyl 1 tab PO DAILY 04/15/22 04/15/22 Unknown estradiol 20 mcg tablet (Junel) tramadol 50 mg tablet 50 mg PO Q6 PRN Pain, Severe 04/15/22 04/15/22 Unknown Active Medications Generic Name Dose Route Start Last Admin Trade Name Freq PRN Reason Stop Dose Admin Acetaminophen 650 mg 04/15/22 21:02 04/19/22 07:55 Acetaminophen 325 Mg Tab PO 05/15/22 21:01 650 mg Q4H PRN Administration pain/fever Bupropion HCl 300 mg 04/15/22 21:02 04/18/22 21:17 Bupropion Xl 300 Mg Tabcr PO 05/15/22 21:01 300 mg HS ILIANA Administration Bupropion HCl 150 mg 04/15/22 21:02 04/18/22 21:17 Bupropion Xl 150 Mg Tabcr PO 05/15/22 21:01 150 mg HS ILIANA Administration Buspirone HCl 10 mg 04/15/22 21:02 04/19/22 08:56 Buspirone 5 Mg Tab PO 05/15/22 21:01 10 mg TID ILIANA Administration Heparin Sodium/Dextrose 25,000 units in 500 mls @ 0 mls/hr 04/15/22 18:15 04/16/22 17:31 Heparin Sodium/Dextrose IV 05/15/22 18:14 0 units/hr .Q0M ILIANA 0 mls/hr Titration Protocol 0 UNITS/HR Ciprofloxacin 400 mg in 200 mls @ 100 mls/hr 04/16/22 09:00 04/19/22 08:56 Cipro / D5w IV 04/26/22 08:59 100 mls/hr Q12H ILIANA Administration Protocol Pantoprazole Sodium 40 mg/ 10 mls @ 5 mls/min 04/16/22 17:30 04/19/22 08:56 Syringe IV 05/16/22 17:29 5 mls/min BID ILIANA Administration Potassium Chloride/Sodium Chloride 20 meq in 1,000 mls @ 125 mls/hr 04/17/22 09:45 04/19/22 02:00 Normal Saline W/20 Meq Kcl IV 05/17/22 09:44 125 mls/hr .Q8H ILIANA Administration Protocol Promethazine HCl 6.25 mg/ 50.25 mls @ 201 mls/hr 04/17/22 10:35 04/18/22 17:26 Sodium Chloride IV 05/17/22 10:34 Infused Q6H PRN Infusion Nausea And Vomiting Daptomycin 250 mg/ Syringe 5 mls @ 2.5 mls/min 04/18/22 13:00 04/18/22 13:13 IV 04/20/22 13:01 2.5 mls/min Q24H ILIANA Administration Protocol Imipramine HCl 125 mg 04/15/22 21:02 04/18/22 21:17 Imipramine Hcl 25 Mg Tab PO 05/15/22 21:01 125 mg HS ILIANA Administration Lorazepam 1 mg 04/15/22 21:02 04/18/22 21:16 Lorazepam 1 Mg Tab PO 05/15/22 21:01 1 mg HS PRN Administration Sleep Miscellaneous 1 each 04/16/22 00:00 04/19/22 00:00 Order Awaiting Action - Dexmethylphenidate N/A 05/16/22 00:00 Not Given QS ILIANA Oxycodone HCl 10 mg 04/17/22 10:35 04/18/22 21:16 Oxycodone Hcl Ir 5 Mg Tab (Immediate Release) PO 04/29/22 22:22 10 mg Q4H PRN Administration Pain Past Medical History Medical History (Updated 04/19/22 @ 09:25 by Zia Mariee MD) Asthma Attention deficit disorder Depression Encounter for pre-operative examination Fibromyalgia IBS (irritable bowel syndrome) Migraines Mnire's disease No pertinent family history Past Family History Family History Mother Breast cancer Uncle Diabetes Father Throat cancer Past Surgical History Surgical History History of cholecystectomy Social History Smoking Status: Never smoker Hx Alcohol Use: Yes Alcohol type: beer and wine alcohol intake frequency: holidays/special occasions only Hx Substance Use: No substance use type: does not use Physical Exam Vital Signs Last Vital Signs Temp 36.7 C 04/19/22 07:47 Pulse 94 H 04/19/22 07:47 Resp 19 04/19/22 07:47 BP 147/91 H 04/19/22 07:47 Pulse Ox 100 04/19/22 07:47 O2 Del Method 04/19/22 07:47 Testing Laboratory Results 04/19/22 06:23 04/19/22 06:23 PT 10.3 Seconds (9.0-12.0) 04/15/22 18:18 INR 1.0 (0.9-1.1) 04/15/22 18:18 APTT 28.5 Seconds (21.0-31.0) 04/19/22 06:23 Urine Color Yellow 04/18/22 14:15 Urine Appearance Clear (Clear) 04/18/22 14:15 Urine pH 6.5 (4.5-7.5) 04/18/22 14:15 Ur Specific Graham 1.005 (1.000-1.030) 04/18/22 14:15 Urine Protein Negative (Negative) 04/18/22 14:15 Urine Glucose (UA) Negative (Negative) 04/18/22 14:15 Urine Ketones Negative (Negative) 04/18/22 14:15 Urine Nitrite Negative (Negative) 04/18/22 14:15 Ur Leukocyte Esterase Trace (Negative) H 04/18/22 14:15 Urine WBC (Auto) 1-5 /hpf (0-5) 04/18/22 14:15 Urine RBC (Auto) 10-30 /hpf (0-4) H 04/18/22 14:15 U Hyaline Cast (Auto) 0 /lpf (0-5) 04/18/22 14:15 U Epithel Cells (Auto) 10-20 /lpf (0-5) H 04/18/22 14:15 Urine Bacteria (Auto) Negative (Negative) 04/18/22 14:15 Blood Type A Positive 04/16/22 17:58 Antibody Screen NEGATIVE 04/16/22 17:58 04/15/22 14:51 Urine Culture - Final Urine,Clean Catch Staphylococcus epidermidis 04/15/22 14:51 POC Ur Test NEG Electrocardiogram Date: 04/17/22 Test Reason : Blood Pressure : / mmHG Vent. Rate : 086 BPM Atrial Rate : 086 BPM P-R Int : 154 ms QRS Dur : 104 ms QT Int : 394 ms P-R-T Axes : 061 105 068 degrees QTc Int : 471 ms Normal sinus rhythm Rightward axis Borderline ECG When compared with ECG of 16-APR-2022 09:23, No significant change was found Confirmed by Quang Leo ([id number]) on 04/17/2022 2:30:34 PM
--- NOTE | 2022-04-19 10:36 | History & Physical Report ---
Date of Service April 19, 2022 Assessment & Plan Admission and Anticipated Discharge Date Admission Date: April 15, 2022 History of Present Illness Primary Care Provider: Michael Dos Santos MD Pt with abd pain, ischemic colitis CV: RRR Resp: CTA Abd: soft A/p: Flex sig Allergies Allergy/AdvReac Type Severity Reaction Status Date / Time Penicillins Allergy Severe DIFFICULTY Verified 04/15/22 15:21 BREATHING-ANAPHYLAXIS mushroom Allergy Unknown ANAPHYLAXIS Verified 04/15/22 15:21 morphine AdvReac Intermediate EMESIS Verified 04/15/22 15:21 Home Medications Medication Instructions Recorded Confirmed Type bupropion HCl 150 mg 24 hr tablet, 150 mg PO HS 04/15/22 04/15/22 History extended release bupropion HCl 300 mg 24 hr tablet, 300 mg PO HS 04/15/22 04/15/22 History extended release buspirone 10 mg tablet 10 mg PO TID 04/15/22 04/15/22 History dexmethylphenidate 10 mg tablet 10 mg PO TID 04/15/22 04/15/22 History imipramine HCl 50 mg tablet 125 mg PO HS 04/15/22 04/15/22 History lorazepam 1 mg tablet 1 mg PO HS PRN Sleep 04/15/22 04/15/22 History norethindrone acetate 1 mg-ethinyl 1 tab PO DAILY 04/15/22 04/15/22 History estradiol 20 mcg tablet (Junel) tramadol 50 mg tablet 50 mg PO Q6 PRN Pain, Severe 04/15/22 04/15/22 History Past Med/Surg History Medical History (Updated 04/19/22 @ 09:25 by Zia Mariee MD) Asthma Attention deficit disorder Depression Encounter for pre-operative examination Fibromyalgia IBS (irritable bowel syndrome) Migraines Mnire's disease No pertinent family history Surgical History History of cholecystectomy Family History Mother Breast cancer Uncle Diabetes Father Throat cancer Social History Smoking Status: Never smoker Hx Alcohol Use: Yes Alcohol type: beer and wine Hx Substance Use: No Preferred Language: Kosovan Communication Ability: Effective 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
[2022-04-19] MEDS: oxyCODONE HCL IR 5 MG TAB (IMMEDIATE RELEASE) PO PRN (10:45)
[2022-04-19] MEDS ORDERED: LIDOCAINE 2% MPF LOCAL 5 ML VIAL INFIL ONE (11:12)
[2022-04-19] MEDS ORDERED: PROPOFOL IV EMULSION 10 MG/ML 20 ML VIAL IV ONE (11:12)
[2022-04-19] MEDS ORDERED: MIDAZOLAM HCL 1 MG/ML 2ML VIAL ONE (11:12)
[2022-04-19] MEDS: MAGNESIUM SULFATE / D5W 1 GM/100 ML BAG IV SCH ×2 (12:38→14:22)
[2022-04-19] MEDS: DAPTOmycin 250 MG in SYRINGE 0 ML IV SCH (12:59)
--- NOTE | 2022-04-19 13:31 | GI REPORT ---
Patient Name: Janelle Edmond Procedure Date: 04/19/2022 11:14 AM Date of : 1975 Admit Type: Inpatient Age: 46 Gender: Female Attending MD: Alfonso Corcoran MD Procedure: Flexible Sigmoidoscopy Providers: Alfonso Corcoran MD Referring MD: Jones Ly Md Indications: Abnormal CT of the GI tract Medicines: See the Anesthesia note for documentation of the administered medications Complications: No immediate complications. Estimated Blood Loss: Estimated blood loss: none. Procedure: Pre-Anesthesia Assessment: - ASA Grade Assessment: III - A patient with severe systemic disease. After obtaining informed consent, the endoscope was passed under direct vision. Throughout the procedure, the patient's blood pressure, pulse, and oxygen saturations were monitored continuously. The Colonoscope was introduced through the anus and advanced to the descending colon. The colonoscopy was performed without difficulty. The patient tolerated the procedure well. The quality of the bowel preparation was good. Findings: The perianal and digital rectal examinations were normal. The rectum was normal. There were changes of ischemic colitis, with thumbprinting, edema with luminal narrowing, and submucosal hemorrhage in the descending colon. Recommendation: Discharge pt to floor. Full liquid diet. Continue antibiotics. Wean narcotics if possible. Re-image liver to eval for extension of PVT. Alfonso Corcoran M.D. Alfonso Corcoran MD 04/19/2022 1:31:18 PM This report has been signed electronically. Note Initiated On: 04/19/2022 11:14 AM Number of Addenda: 0 I attest to the content of the Intraoperative Record and orders documented therein, exceptions below {[id number]}
--- NOTE | 2022-04-19 13:32 | Anesthesiology Progress Note ---
Date of Service April 19, 2022 Anesthesia Post Procedure Vital Signs Vital Signs: Temp Pulse Pulse Resp BP Pulse Ox O2 Del Method 04/19/22 12:57 36.9 C 82 14 136/87 99 Room Air 04/19/22 12:30 36.8 C 91 H 14 144/89 H 100 Room Air 04/19/22 12:06 88 16 144/91 H 98 Room Air 04/19/22 11:51 87 16 133/87 100 Room Air 04/19/22 11:36 78 14 129/83 100 Room Air 04/19/22 07:55 90 04/19/22 10:05 36.6 C 16 143/92 H 99 Room Air 04/19/22 07:47 36.7 C 94 H 19 147/91 H 100 Room Air 04/18/22 20:00 96 H 04/18/22 23:06 37.0 C 101 H 20 112/68 96 Room Air 04/18/22 15:59 36.5 C 73 18 137/82 99 Room Air Pain Intensity Abdomen: Pain Intensity: 8 Transfer of Care Handoff Completed per policy Notes Mental Status: alert / awake / arousable and participated in evaluation Patient Amnestic to Procedure: Yes Nausea / Vomiting: adequately controlled Pain: adequately controlled Airway Patency, RR, SpO2: stable & adequate BP & HR: stable & adequate Hydration State: stable & adequate Anesthetic Complications: no major complications apparent and Pt Satisfied with anesthetic care
[2022-04-19] MEDS: metroNIDAZOLE 500 MG/100 ML BAG IV SCH ×2 (14:19→20:30)
--- NOTE | 2022-04-19 16:03 | Surgery Progress Note ---
Date of Service April 19, 2022 Assessment & Plan (1) Colitis: Plan: Patient underwent flex sig today revealing findings of colitis She reports continued improvement in her symptoms...less pain, less bloody BMs. WBC 11(13), Hbg 10 (10) Is hungry, but reports ongoing nausea GI advancing diet to low fiber as tolerates Planning on MRI of the liver to evaluate extent of portal venous thrombus No plans for surgical intervention...continue supportive care + abx (2) Portal vein thrombosis: Admission and Anticipated Discharge Date Admission Date: April 15, 2022 Subjective Patient is feeling improvement with her pain. Still having some bloody BM's but less blood overall. She is hungry, however remains with nausea. Physical Exam Physical Exam: awake/alert, no distress Gastrointestinal (Abdomen): Inspection/Auscultation: abdomen not distended Percussion/Palpation: + abdomen tender (ttp in llq but improving ) and abdomen soft Results & Data ([facility]) Vital Signs (Past 12 Hours) Vital Signs Temp Pulse Pulse Resp BP Pulse Ox O2 Del Method 04/19/22 15:24 36.6 C 84 18 128/80 100 Room Air 04/19/22 12:57 36.9 C 82 14 136/87 99 Room Air 04/19/22 12:30 36.8 C 91 H 14 144/89 H 100 Room Air 04/19/22 12:06 88 16 144/91 H 98 Room Air 04/19/22 11:51 87 16 133/87 100 Room Air 04/19/22 11:36 78 14 129/83 100 Room Air 04/19/22 07:55 90 04/19/22 10:05 36.6 C 16 143/92 H 99 Room Air 04/19/22 07:47 36.7 C 94 H 19 147/91 H 100 Room Air PG Care Time/CCT Total # of Minutes Spent Total Time Spent with Patient: Total time spent is greater than 50% in coordination of care (as documented) at patient's floor/unit and/or counseling patient: Coding Level of Care Code 35758 Subseq Hosp Care Lvl 1 Diagnoses Colitis K52.9 Portal vein thrombosis I81
--- NOTE | 2022-04-19 16:55 | Hospitalist Progress Note ---
Date of Service April 19, 2022 Assessment & Plan (1) Portal vein thrombosis: Plan: Portal Vein Thrombosis Likely due to OCPs --CT ABD:Wall thickening with pericolonic inflammation of the descending colon. This represents a nonspecific colitis. No free air or abscess. 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 Possible minimal thrombus within the distal superior mesenteric vein extending into the main portal vein. Normal appendix. No bowel obstruction. Moderate amount of stool within the colon and rectum. --OCPs discontinued -- IV heparin held due to GI bleed Pain control Need further work for hypercoagulability as outpatient Appreciate GI Input To hold IV heparin until no bleeding for 24 hours Plan to repeat imaging to reassess portal vein thrombosis. Needs outpatient hematology evaluation for hypercoagulation (2) Colitis: Plan: Questionable Ischemic Colitis Acute GI bleeding Lactic acidosis CT abd as above Stool for C. difficile negative Continue Cipro, flagyl GI, Surgery consulted Continue IV fluids Trend lactate levels No surgical intervention needed currently as per surgery Monitor H&H and transfuse PRBCs as needed Rectal bleeding improving Hb stable S/O Colonoscopy today : changes of ischemic colitis, with thumbprinting, edema with luminal narrowing, and submucosal hemorrhage in the descending colon. Advance diet as tolerated Continue IV antibiotics Wean off of narcotics as able (3) UTI (urinary tract infection): Plan: Urine Culture: Staph epidermidis on Dapto (4) Attention deficit disorder without mention of hyperactivity: Plan: chronic, stable. Continue home meds (5) Depression: Plan: Chronic, stable. Continue home meds (6) Asthma: Plan: No signs of exacerbation Nebs as needed (7) Fibromyalgia: Plan: chronic, stable Continue Imipramine (8) DVT prophylaxis: Plan: SCDs Re: GI bleed Code Status Full Code Admission and Anticipated Discharge Date Admission Date: April 15, 2022 Subjective Patient is seen and examined at bedside Still has Abdominal pain, nausea Rectal bleeding much improved Hb stable Planned for colonoscopy today No other complaints Review of Systems Review of Systems: All systems reviewed & are unremarkable except as noted in Subjective Physical Exam Physical Exam: Physical Exam: Vitals signs as noted above General Appearance:Moderately built and nourished, no apparent distress Head: normocephalic, Atraumatic Eyes: normal inspection, EOMI Neck: supple, Trachea midline Respiratory/Chest: Normal breath sounds, CTA, No accessory muscle use Cardiovascular: S1, S2, No murmur Abdomen/GI:Soft, LLQ, Epigastric tenderness, no guarding, rigidity, Bowel sounds present Extremities/Musculoskeletal:normal inspection, no edema Neurologic/Psych:AAOX3, grossly no focal neurological deficits Skin: normal color, warm Results & Data Results & Data ([facility]) Vital Signs (Past 12 Hours) Vital Signs Temp Pulse Pulse Resp BP Pulse Ox O2 Del Method 04/19/22 16:30 90 04/19/22 15:24 36.6 C 84 18 128/80 100 Room Air 04/19/22 12:57 36.9 C 82 14 136/87 99 Room Air 04/19/22 12:30 36.8 C 91 H 14 144/89 H 100 Room Air 04/19/22 12:06 88 16 144/91 H 98 Room Air 04/19/22 11:51 87 16 133/87 100 Room Air 04/19/22 11:36 78 14 129/83 100 Room Air 04/19/22 07:55 90 04/19/22 10:05 36.6 C 16 143/92 H 99 Room Air 04/19/22 07:47 36.7 C 94 H 19 147/91 H 100 Room Air Laboratory Results Short CBC 04/19/22 Range/Units 06:23 WBC 11.65 H (4.8-10.8) K/ul Hgb 10.2 L (12.0-16.0) g/dl Hct 30.1 L (34.1-44.9) % Plt Count 305 (130-400) K/uL BMP 04/19/22 06:23 Sodium 133 L Potassium 3.6 Chloride 104 Carbon Dioxide 23 BUN 3 L Creatinine 0.70 Glucose 94 Calcium 7.6 L
[2022-04-19] MEDS ORDERED: GADOXETATE DISODIUM IV ONE (19:54)
[2022-04-19] MEDS: buPROPion XL 300 MG TABCR PO SCH (20:25)
[2022-04-19] MEDS: buPROPion XL 150 MG TABCR PO SCH (20:26)
[2022-04-19] MEDS: IMIPRAMINE HCL 25 MG TAB PO SCH (20:29)
[2022-04-20] MEDS: NSS + 20MEQ KCL 20 MEQ/1,000 ML BAG IV SCH ×4 (05:53→21:33)
[2022-04-20] MEDS: metroNIDAZOLE 500 MG/100 ML BAG IV SCH ×3 (05:53→22:31)
[2022-04-20 06:32] LABS: Hematocrit (blood only) 32.2 % (34.1-44.9); Hemoglobin 10.8 g/dl (12.0-16.0); Mean Corpuscular Hemoglobin 28.4 pg (25.0-34.0); Mean Corpuscular Hgb Conc 33.5 g/dL (32.0-36.0); Mean Corpuscular Volume 84.7 fL (80.0-100.0); Mean Platelet Volume 9.5 fL (9.4-12.3); Platelet Count 367 K/uL (130-400); RDW Coefficient of Variation 13.4 % (11.5-14.5); RDW Standard Deviation 41.8 fL (36.4-46.3); White Blood Count 9.24 K/ul (4.8-10.8)
[2022-04-20 06:39] LABS: Partial Thromboplastin Ratio 1.1; Partial Thromboplastin Time 29.4 Seconds (21.0-31.0)
[2022-04-20 07:07] LABS: BUN Creatinine Ratio 5.5 (10-20); Creatinine Clr Calc Pharmacy 91.6 ml/min; Est GFR (African American) 112.9 ml/min; Est GFR (Non-African American) 97.4 ml/min; Magnesium 1.9 mg/dl (1.7-2.4); Potassium 4.1 mmol/L (3.5-5.1)
--- NOTE | 2022-04-20 09:19 | Magnetic Resonance Report ---
MRI OF THE ABDOMEN COMBO; MRCP CLINICAL HISTORY: Portal vein thrombosis. COMPARISON STUDY: Abdominal CT dated 04/15/2022, 04/22/2015, and 06/14/2013. TECHNIQUE: MRI of the abdomen is performed transverse T1 and T2-weighted sequences in the axial and c oronal planes. Contrast enhanced sequences were acquired following the IV administration of 10 cc Eo vist. Diffusion weighted imaging and subtraction imaging were utilized. High-resolution MRCP images were obtained. 3-D reformats were created and assessed. FINDINGS: Lower chest: There are trace pleural effusions. The heart is normal in size. Liver: The liver is normal in size, contour, and signal intensity. A transient perfusion anomaly is s een within the anterior right lobe. No intrahepatic biliary ductal dilatation is seen. A coarse calci fication in the right lobe is unchanged. Again seen Is a 1.7 cm lesion in the inferior right lobe. Th is appears to contain macroscopic fat on the opposed phase images, and is nearly isointense on the T1 and T2-weighted sequences. This lesion is isointense on the early portal venous phase and shows wash out. This lesion does not retain Eovist Hepatic and portal vasculature: There is trace nonocclusive thrombus within the superior mesenteric v ein just below the portosplenic confluence. The main portal vein is patent. Again seen is significant thrombus within the anterior branch of the intrahepatic right portal vein.. There is likely trace th rombus within the posterior branch of the right portal vein. The left portal vein appears patent. The splenic vein is clear as imaged. Gallbladder/MRCP: The gallbladder surgically absent. No intrahepatic biliary duct dilatation is ident ified. The common bile duct measures up to 8 mm in diameter. There are no intraluminal filling defect s to suggest choledocholithiasis. The pancreatic duct is normal in caliber. Spleen: Normal in size and signal intensity. Pancreas: Unremarkable. Adrenal glands: Unremarkable. Kidneys: The kidneys are normal in size and without hydronephrosis. The kidneys enhance and excrete s ymmetrically. Abdominal aorta: Normal in course and caliber. Bowel: Inflammatory changes again seen involving the left colon. This is better assessed on the recen t CT scan. There is no evidence of bowel obstruction. Peritoneum: There is no abdominal ascites. Lymphadenopathy: None. Skeletal structures: Visualized skeletal structures times are normal marrow signal intensity. IMPRESSION: 1. Intrahepatic portal venous thrombus is again noted and grossly similar to the 04/15/2022 CT scan. 2. There is also trace nonocclusive thrombus in the superior mesenteric vein below the portosplenic c onfluence. 3. There is an associated transient perfusion anomaly in the right hepatic lobe. 4. Again seen is a 1.7 cm lesion in the inferior right lobe of liver as detailed above. This is indet erminant, and the imaging characteristics favor an adenoma. This has only modestly increased in size dating back to 2013 favoring a benign etiology. 5. Trace pleural effusions. 6. Normal MRCP noting status post cholecystectomy. 7. Inflammatory change is again seen involving the left colon. This was much better assessed on the r ecent CT scan. ACT 112: Negative or not required by law. Electronically signed by: Nicanor Uribe M.D. 04/20/2022 9:18 AM
[2022-04-20] MEDS: busPIRone 5 MG TAB PO SCH ×3 (10:17→21:27)
[2022-04-20] MEDS: PANTOprazole 40 MG in SYRINGE 0 ML IV SCH ×2 (10:17→21:26)
--- NOTE | 2022-04-20 10:17 | Gastroenterology Progress Note ---
Date of Service April 20, 2022 Assessment & Plan (1) Ischemic colitis: Plan: Likely secondary to vigorous workout, intermittent fasting, OCs. (2) Portal vein thrombosis: Plan: Pro's/Con's of anticoagulation discussed w pt. At risk for further bleeding from the ischemic colitis if anticoagulation is restarted immediately. Preference would be to hold off to allow some healing prior to tx with anticoagulation. Plan OK for DC from a GI standpoint. Anticipate starting anticoagulant for thrombus in one week. Admission and Anticipated Discharge Date Admission Date: April 15, 2022 Supervising Physician Co-Signing Physician Notes Attg add: I interviewed and examined pt, reviewed chart and labs. Pt without abd pain, no n/v, jaiden PO, no rectal bleeding. OK for d/c home. Would recommend d/c on 2 additional weeks of abx (cipro / Flagyl or Augmentin). Begin a/c in 1-2 weeks when bleeding risk subsides and plan on 3-6 month course Re-image PV in 3 mos Hematology f/u for anti-coag w/u GI f/u in 2 weeks, arrange fibroscan and cscopy in 8 weeks. Subjective 46, female admitted 04/[address] w non specific descending colon colitis. Colonoscopy yesterday consistent with ischemic colitis. This morning, improvement in pain. Only Tylenol used for pain in the past 24 hrs. Still w diarrhea after every time she eats/drinks and has cramping with that. Pt would like to go home today. MRI liver last night: PVT appears similar, note of trace nonocclusive thrombus in the superior mesenteric at portosplenic confluence. Review of Systems Review of Systems: ROS: Gen: + mild weakness, No fevers Eyes: No eye redness, or pain, no recent vision changes Resp: No SOB, no cough Cardio: No palpitations/irregular beats, no chest pain GI: As per HPI : Denies pain on urination Skin: No jaundice, itching or new rashes A total of 12 systems reviewed, all others (-) Physical Exam Physical Exam: Constitutional:L well developed, we ll nourished no di stress Eyes: PERRL, conjunctiva e normal, anicteri c sclerae ENMT: external ear and n ose normal, oropha rynx normal Neck: trachea midline, n o thyromegaly Respiratory: normal respiratory effort, lungs brenda ar to auscultation Cardiovascular:L RRR, no murmur, no edema Gastrointestinal ( Abdomen): mildly/moderately tender in the LLQ, no tenderness els ewhere, Abd is sof t, non distended Skin: no rashes, warm an d dry Neurologic: PERRL, EOMI, accom modation nl, no fa ce palsy, no dysar thria Psychiatric: A, A, O; pleasant, conversational. Lymphatic: no cervical or axi llary lymphadenopa thy Results & Data ([facility]) Vital Signs (Past 12 Hours) Vital Signs Temp Pulse Pulse Resp BP Pulse Ox O2 Del Method 04/20/22 08:00 87 04/20/22 08:00 36.6 C 87 16 135/86 99 Room Air 04/20/22 07:08 36.5 C 82 16 117/78 99 Room Air 04/20/22 03:10 36.8 C 82 18 110/67 98 Room Air 04/20/22 01:31 89 04/19/22 23:18 36.6 C 89 16 133/85 99 Room Air Laboratory Results WBC 9.2, Hb 10, HCT 32, PLT S367, PT 29, INR 1.1, NA 135, K4.1, CL 106, CO2 24, BUN 4, CR 0.7, glucose 88. Diagnostic Findings MRI 04/20/22: 1. Intrahepatic portal venous thrombus is again noted and grossly similar to the 04/15/2022 CT scan. 2. There is also trace nonocclusive thrombus in the superior mesenteric vein below the portosplenic confluence. 3. There is an associated transient perfusion anomaly in the right hepatic lobe. 4. Again seen is a 1.7 cm lesion in the inferior right lobe of liver as detailed above. This is indeterminant, and the imaging characteristics favor an adenoma. This has only modestly increased in size dating back to 2012 favoring a benign etiology. 5. Trace pleural effusions. 6. Normal MRCP noting status post cholecystectomy. 7. Inflammatory change is again seen involving the left colon. This was much better assessed on the recent CT scan.
[2022-04-20] MEDS: CIPROFLOXACIN / D5W 400 MG/200 ML BAG IV SCH ×2 (10:18→21:26)
--- NOTE | 2022-04-20 11:06 | Surgery Progress Note ---
Date of Service April 20, 2022 Assessment & Plan (1) Colitis: Plan: Patient with significant findings on sigmoidoscopy Continue diet as ordered IV antibiotics No plan for surgical intervention Admission and Anticipated Discharge Date Admission Date: April 15, 2022 Subjective Patient awake and alert in no distress Tolerated some food Feeling somewhat better Review of Systems Review of Systems: All systems reviewed & are unremarkable except as noted in HPI & below Physical Exam Physical Exam: Awake and alert in no distress Normal affect Respiratory: normal respiratory effort; no respiratory distress Cardiovascular: Rate/Rhythm: regular rate Gastrointestinal (Abdomen): Minimal distention of the abdomen Musculoskeletal: Atraumatic Skin: Warm Neurologic: Awake and alert Results & Data ([facility]) Vital Signs (Past 12 Hours) Vital Signs Temp Pulse Pulse Resp BP Pulse Ox O2 Del Method 04/20/22 08:00 87 04/20/22 08:00 36.6 C 87 16 135/86 99 Room Air 04/20/22 07:08 36.5 C 82 16 117/78 99 Room Air 04/20/22 03:10 36.8 C 82 18 110/67 98 Room Air 04/20/22 01:31 89 04/19/22 23:18 36.6 C 89 16 133/85 99 Room Air PG Care Time/CCT Total # of Minutes Spent Total Time Spent with Patient: Total time spent is greater than 50% in coordination of care (as documented) at patient's floor/unit and/or counseling patient: Coding Level of Care Code 33325 Inpt Consult Level 3 Diagnoses Colitis K52.9
--- NOTE | 2022-04-20 14:51 | Hospitalist Progress Note ---
Date of Service April 20, 2022 Assessment & Plan (1) Portal vein thrombosis: Plan: Portal Vein Thrombosis Likely due to OCPs --CT ABD:Wall thickening with pericolonic inflammation of the descending colon. This represents a nonspecific colitis. No free air or abscess. 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 Possible minimal thrombus within the distal superior mesenteric vein extending into the main portal vein. Normal appendix. No bowel obstruction. Moderate amount of stool within the colon and rectum. --OCPs discontinued -- IV heparin held due to GI bleed Pain control Need further work for hypercoagulability as outpatient Appreciate GI Input To hold IV heparin until no bleeding for 24 hours Plan to repeat imaging to reassess portal vein thrombosis. Needs outpatient hematology evaluation for hypercoagulation Discussed with the railway station manager and will not be given any anticoagulation for about 5 to 7 days due to increased risk of bleeding from the colon (2) Colitis: Plan: Questionable Ischemic Colitis Acute GI bleeding Lactic acidosis CT abd as above Stool for C. difficile negative Continue Cipro, flagyl GI, Surgery consulted Continue IV fluids Trend lactate levels No surgical intervention needed currently as per surgery Monitor H&H and transfuse PRBCs as needed Rectal bleeding improving Hb stable S/O Colonoscopy today : changes of ischemic colitis, with thumbprinting, edema with luminal narrowing, and submucosal hemorrhage in the descending colon. Advance diet as tolerated Continue IV antibiotics Wean off of narcotics as able Has significant changes in the colon secondary to ischemic colitis and starting of anticoagulation is not recommended at this time as per railway station manager Likely discharge tomorrow (3) UTI (urinary tract infection): Plan: Urine Culture: Staph epidermidis on Dapto Will finish the course 3-day course of intravenous Dapto tomorrow (4) Attention deficit disorder without mention of hyperactivity: Plan: chronic, stable. Continue home meds (5) Depression: Plan: Chronic, stable. Continue home meds (6) Asthma: Plan: No signs of exacerbation Nebs as needed (7) Fibromyalgia: Plan: chronic, stable Continue Imipramine (8) DVT prophylaxis: Plan: SCDs Re: GI bleed Code Status Full Code Admission and Anticipated Discharge Date Admission Date: April 15, 2022 Subjective 04/20/2022 The patient was seen and examined in telemetry unit She has been feeling much better and is still has minimal lower quadrants abdominal pain and diarrhea No blood in the stool No fever and or chills and no urinary symptoms Review of Systems Review of Systems: All systems reviewed and are unremarkable except as noted below Physical Exam Physical Exam: Lying in bed comfortably but depressed Constitutional: well developed, well nourished, + ill appearing and + obese Eyes: PERRL, conjunctivae normal, anicteric sclerae ENMT: external ear and nose normal, oropharynx normal Neck: trachea midline, no thyromegaly Respiratory: no respiratory distress Auscultation: lungs clear to auscultation bilaterally Cardiovascular: Rate/Rhythm: regular rate and regular rhythm; not tachycardic Heart Sounds: normal S1 and normal S2; no murmur Extremities: no edema Gastrointestinal (Abdomen): Inspection/Auscultation: normal bowel sounds; abdomen not distended Percussion/Palpation: + abdomen tender (Mildly tender lower quadrants) and abdomen soft Musculoskeletal: No acute arthritis in any joint Neurologic: Alert, awake and oriented x3 Lymphatic: no cervical or axillary lymphadenopathy Results & Data Results & Data ([facility]) Vital Signs (Past 12 Hours) Vital Signs Temp Pulse Pulse Resp BP Pulse Ox O2 Del Method 04/20/22 08:00 87 04/20/22 08:00 36.6 C 87 16 135/86 99 Room Air 04/20/22 07:08 36.5 C 82 16 117/78 99 Room Air 04/20/22 03:10 36.8 C 82 18 110/67 98 Room Air Laboratory Results Short CBC 04/20/22 Range/Units 05:30 WBC 9.24 (4.8-10.8) K/ul Hgb 10.8 L (12.0-16.0) g/dl Hct 32.2 L (34.1-44.9) % Plt Count 367 (130-400) K/uL BMP 04/20/22 05:30 Sodium 135 L Potassium 4.1 Chloride 106 Carbon Dioxide 24 BUN 4 L Creatinine 0.73 Glucose 88 Calcium 8.0 L Medications Administered Current Inpatient Medications Acetaminophen (Acetaminophen 325 Mg Tab) 650 mg PO Q4H PRN PRN Reason: pain/fever Stop: 05/15/22 21:01 Last Admin: 04/19/22 23:24 Dose: 650 mg Al Hydrox/Mg Hydrox/Simethicone (Aluminum/Magnesium Susp 30 Ml Udc) 15 ml PO Q4H PRN PRN Reason: Dyspepsia Stop: 05/15/22 21:01 Albuterol (Albuterol 0.083% Nebu Soln 3 Ml Vial) 2.5 mg NEB Q6R PRN; Protocol PRN Reason: Shortness Of Breath Or Wheezing Stop: 05/16/22 12:31 Bupropion HCl (Bupropion Xl 300 Mg Tabcr) 300 mg PO HS [facility] Stop: 05/15/22 21:01 Last Admin: 04/19/22 20:25 Dose: 300 mg Bupropion HCl (Bupropion Xl 150 Mg Tabcr) 150 mg PO HS [facility] Stop: 05/15/22 21:01 Last Admin: 04/19/22 20:26 Dose: 150 mg Buspirone HCl (Buspirone 5 Mg Tab) 10 mg PO TID [facility]NA Stop: 05/15/22 21:01 Last Admin: 04/20/22 14:00 Dose: 10 mg Heparin Sodium/Dextrose (Heparin Sodium/Dextrose) 25,000 units in 500 mls @ 0 mls/hr IV .Q0M ILIANA; Protocol Stop: 05/15/22 18:14 Last Titration: 04/16/22 17:31 Dose: 0 units/hr, 0 mls/hr Ciprofloxacin (Cipro / D5w) 400 mg in 200 mls @ 100 mls/hr IV Q12H [facility]; Protocol Stop: 04/26/22 08:59 Last Infusion: 04/20/22 12:18 Dose: Infused Pantoprazole Sodium 40 mg/ (Syringe) 10 mls @ 5 mls/min IV BID [facility]NA Stop: 05/16/22 17:29 Last Admin: 04/20/22 10:17 Dose: 5 mls/min Potassium Chloride/Sodium Chloride (Normal Saline W/20 Meq Kcl) 20 meq in 1,000 mls @ 125 mls/hr IV .Q8H [facility]IANA; Protocol Stop: 05/17/22 09:44 Last Admin: 04/20/22 14:33 Dose: 125 mls/hr Promethazine HCl 6.25 mg/ (Sodium Chloride) 50.25 mls @ 201 mls/hr IV Q6H PRN PRN Reason: Nausea And Vomiting Stop: 05/17/22 10:34 Last Infusion: 04/18/22 17:26 Dose: Infused Metronidazole (Flagyl) 500 mg in 100 mls @ 100 mls/hr IV Q8H [facility]; Protocol Stop: 04/26/22 13:59 Last Infusion: 04/20/22 15:00 Dose: Infused Imipramine HCl (Imipramine Hcl 25 Mg Tab) 125 mg PO HS [facility]NA Stop: 05/15/22 21:01 Last Admin: 04/19/22 20:29 Dose: 125 mg Lorazepam (Lorazepam 1 Mg Tab) 1 mg PO HS PRN PRN Reason: Sleep Stop: 05/15/22 21:01 Last Admin: 04/18/22 21:16 Dose: 1 mg Miscellaneous (Order Awaiting Action - Dexmethylphenidate) 1 each N/A QS [facility] Stop: 05/16/22 00:00 Last Admin: 04/20/22 16:03 Dose: Not Given Oxycodone HCl (Oxycodone Hcl Ir 5 Mg Tab (Immediate Release)) 10 mg PO Q4H PRN PRN Reason: Pain Stop: 04/29/22 22:22 Last Admin: 04/19/22 10:45 Dose: 10 mg Polyethylene Glycol (Polyethylene (Miralax) 17 Gm Pack) 17 gm PO DAILY PRN PRN Reason: Constipation Stop: 05/15/22 21:01
[2022-04-20] MEDS: DAPTOmycin 250 MG in SYRINGE 0 ML IV SCH (15:00)
[2022-04-20] MEDS: ACETAMINOPHEN 325 MG TAB PO PRN ×2 (19:40→23:36)
[2022-04-20] MEDS: buPROPion XL 150 MG TABCR PO SCH (21:26)
[2022-04-20] MEDS: buPROPion XL 300 MG TABCR PO SCH (21:26)
[2022-04-20] MEDS: IMIPRAMINE HCL 25 MG TAB PO SCH (21:27)
[2022-04-21] MEDS: NSS + 20MEQ KCL 20 MEQ/1,000 ML BAG IV SCH (05:41)
[2022-04-21] MEDS: ACETAMINOPHEN 325 MG TAB PO PRN ×2 (05:46→15:28)
[2022-04-21] MEDS: metroNIDAZOLE 500 MG/100 ML BAG IV SCH ×2 (06:00→16:32)
--- NOTE | 2022-04-21 07:39 | Surgery Progress Note ---
Date of Service April 21, 2022 Assessment & Plan (1) Ischemic colitis: Plan: Patient here with colitis confirmed by flex sig She feels her symptoms are vastly improved since admission and is eager for discharge. Denies nausea. Pain improved. No more further bloody BMs Abdomen soft, mild discomfort elicited in the left lower abdomen She is tolerating a diet Complete course of abx upon discharge Stable for discharge from our standpoint Admission and Anticipated Discharge Date Admission Date: April 15, 2022 Subjective Patient states she is feeling a lot better. Nausea and pain are much improved. She is tolerating a diet. Endorsing + diarrhea, but not bloody. Physical Exam Physical Exam: awake/alert, no distress Gastrointestinal (Abdomen): Inspection/Auscultation: abdomen not distended Percussion/Palpation: + abdomen tender (mild discomfort in left lower abdomen) and abdomen soft Results & Data ([facility]) Vital Signs (Past 12 Hours) Vital Signs Temp Pulse Pulse Resp BP Pulse Ox O2 Del Method 04/21/22 07:28 37 C 93 H 136/88 98 Room Air 04/21/22 02:53 81 04/20/22 22:48 36.8 C 82 18 134/91 99 Room Air 04/20/22 19:51 36.9 C 84 18 133/86 99 Room Air PG Care Time/CCT Total # of Minutes Spent Total Time Spent with Patient: Total time spent is greater than 50% in coordination of care (as documented) at patient's floor/unit and/or counseling patient: Coding Level of Care Code 50155 Subseq Hosp Care Lvl 1 Diagnoses Ischemic colitis K55.9
[2022-04-21 08:05] LABS: Basophils # (auto) 0.13 K/uL (0-0.2); Basophils % (auto) 1.3 %; Eosinophils # (auto) 0.37 K/uL (0-0.50); Eosinophils % (auto) 3.7 %; Hematocrit (blood only) 35.6 % (34.1-44.9); Hemoglobin 11.9 g/dl (12.0-16.0); Immature Granulocytes # (auto) 0.16 K/uL (0.00-0.02); Immature Granulocytes % (auto) 1.6 %; Lymphocytes # (auto) 2.02 K/uL (1.2-3.4); Lymphocytes % (auto) 20.3 %; Mean Corpuscular Hemoglobin 28.4 pg (25.0-34.0); Mean Corpuscular Hgb Conc 33.4 g/dL (32.0-36.0); Mean Platelet Volume 9.2 fL (9.4-12.3); Monocytes # (auto) 0.75 K/uL (0.24-0.82); Monocytes % (auto) 7.5 %; Neutrophils # (auto) 6.52 K/uL (1.4-6.5); Neutrophils % (auto) 65.6 %; Platelet Count 442 K/uL (130-400); RDW Coefficient of Variation 13.5 % (11.5-14.5); RDW Standard Deviation 42.3 fL (36.4-46.3); Red Blood Count 4.19 M/uL (3.93-5.22); White Blood Count 9.95 K/ul (4.8-10.8)
[2022-04-21 08:37] LABS: Creatinine Clr Calc Pharmacy 83.6 ml/min; Est GFR (Non-African American) 87.2 ml/min; Potassium 4.6 mmol/L (3.5-5.1)
[2022-04-21 08:44] LABS: Partial Thromboplastin Time 27.7 Seconds (21.0-31.0)
[2022-04-21] MEDS: CIPROFLOXACIN / D5W 400 MG/200 ML BAG IV SCH (09:22)
[2022-04-21] MEDS: busPIRone 5 MG TAB PO SCH ×2 (09:22→15:51)
[2022-04-21] MEDS: PANTOprazole 40 MG in SYRINGE 0 ML IV SCH (09:23)
--- NOTE | 2022-04-21 10:25 | Hospitalist Progress Note ---
Date of Service April 21, 2022 Assessment & Plan (1) Portal vein thrombosis: Plan: Portal Vein Thrombosis Likely due to OCPs --CT ABD:Wall thickening with pericolonic inflammation of the descending colon. This represents a nonspecific colitis. No free air or abscess. 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 Possible minimal thrombus within the distal superior mesenteric vein extending into the main portal vein. Normal appendix. No bowel obstruction. Moderate amount of stool within the colon and rectum. --OCPs discontinued -- IV heparin held due to GI bleed Pain control Need further work for hypercoagulability as outpatient Appreciate GI Input To hold IV heparin until no bleeding for 24 hours Plan to repeat imaging to reassess portal vein thrombosis. Needs outpatient hematology evaluation for hypercoagulation Discussed with the lpc and will not be given any anticoagulation for about 5 to 7 days due to increased risk of bleeding from the colon Denies any significant symptoms today (2) Colitis: Plan: Questionable Ischemic Colitis Acute GI bleeding Lactic acidosis CT abd as above Stool for C. difficile negative Continue Cipro, flagyl GI, Surgery consulted Continue IV fluids Trend lactate levels No surgical intervention needed currently as per surgery Monitor H&H and transfuse PRBCs as needed Rectal bleeding improving Hb stable S/O Colonoscopy today : changes of ischemic colitis, with thumbprinting, edema with luminal narrowing, and submucosal hemorrhage in the descending colon. Advance diet as tolerated Continue IV antibiotics Wean off of narcotics as able Has significant changes in the colon secondary to ischemic colitis and starting of anticoagulation is not recommended at this time as per lpc Minimal abdominal pain without any nausea and or vomiting Diarrhea is controlled and no more bleeding per rectum Will change antibiotic orally to continue for a total of 14 days (3) UTI (urinary tract infection): Plan: Urine Culture: Staph epidermidis on Dapto Will finish the course 3-day course of intravenous Dapto tomorrow Antibiotic course is finished and no urinary symptoms (4) Attention deficit disorder without mention of hyperactivity: Plan: chronic, stable. Continue home meds (5) Depression: Plan: Chronic, stable. Continue home meds (6) Asthma: Plan: No signs of exacerbation Nebs as needed (7) Fibromyalgia: Plan: chronic, stable Continue Imipramine (8) DVT prophylaxis: Plan: SCDs Re: GI bleed Code Status Full Code Admission and Anticipated Discharge Date Admission Date: April 15, 2022 Subjective 04/20/2022 The patient was seen and examined in telemetry unit She has been feeling much better and is still has minimal lower quadrants abdominal pain and diarrhea No blood in the stool No fever and or chills and no urinary symptoms 04/21/2022 The patient was seen and examined in telemetry unit She has been feeling much better though still has some pain in the abdomen Diarrhea is controlled and no more blood in the stool No nausea and or vomiting Review of Systems Review of Systems: All systems reviewed and are unremarkable except as noted below Physical Exam Physical Exam: Lying in bed comfortably but depressed Constitutional: well developed, well nourished, + ill appearing and + obese Eyes: PERRL, conjunctivae normal, anicteric sclerae ENMT: external ear and nose normal, oropharynx normal Neck: trachea midline, no thyromegaly Respiratory: no respiratory distress Auscultation: lungs clear to auscultation bilaterally Cardiovascular: Rate/Rhythm: regular rate and regular rhythm; not tachycardic Heart Sounds: normal S1 and normal S2; no murmur Extremities: no edema Gastrointestinal (Abdomen): Inspection/Auscultation: normal bowel sounds; abdomen not distended Percussion/Palpation: + abdomen tender (Mildly tender lower quadrants) and abdomen soft Musculoskeletal: No acute arthritis in any joint Neurologic: Alert, awake and oriented x3. No focal sensory and motor deficit appreciated Lymphatic: no cervical or axillary lymphadenopathy Results & Data Results & Data ([facility]) Vital Signs (Past 12 Hours) Vital Signs Temp Pulse Pulse Resp BP Pulse Ox O2 Del Method 04/21/22 07:28 37 C 93 H 136/88 98 Room Air 04/21/22 02:53 81 04/20/22 22:48 36.8 C 82 18 134/91 99 Room Air Laboratory Results Short CBC 04/21/22 Range/Units 07:38 WBC 9.95 (4.8-10.8) K/ul Hgb 11.9 L (12.0-16.0) g/dl Hct 35.6 (34.1-44.9) % Plt Count 442 H (130-400) K/uL BMP 04/21/22 07:38 Sodium 136 Potassium 4.6 Chloride 104 Carbon Dioxide 26 BUN 8 Creatinine 0.80 Glucose 99 Calcium 9.0 Medications Administered Current Inpatient Medications Acetaminophen (Acetaminophen 325 Mg Tab) 650 mg PO Q4H PRN PRN Reason: pain/fever Stop: 05/15/22 21:01 Last Admin: 04/21/22 05:46 Dose: 650 mg Al Hydrox/Mg Hydrox/Simethicone (Aluminum/Magnesium Susp 30 Ml Udc) 15 ml PO Q4H PRN PRN Reason: Dyspepsia Stop: 05/15/22 21:01 Albuterol (Albuterol 0.083% Nebu Soln 3 Ml Vial) 2.5 mg NEB Q6R PRN; Protocol PRN Reason: Shortness Of Breath Or Wheezing Stop: 05/16/22 12:31 Bupropion HCl (Bupropion Xl 300 Mg Tabcr) 300 mg PO HS [facility] Stop: 05/15/22 21:01 Last Admin: 04/20/22 21:26 Dose: 300 mg Bupropion HCl (Bupropion Xl 150 Mg Tabcr) 150 mg PO HS [facility] Stop: 05/15/22 21:01 Last Admin: 04/20/22 21:26 Dose: 150 mg Buspirone HCl (Buspirone 5 Mg Tab) 10 mg PO TID [facility] Stop: 05/15/22 21:01 Last Admin: 04/21/22 09:22 Dose: 10 mg Heparin Sodium/Dextrose (Heparin Sodium/Dextrose) 25,000 units in 500 mls @ 0 mls/hr IV .Q0M [facility]; Protocol Stop: 05/15/22 18:14 Last Titration: 04/16/22 17:31 Dose: 0 units/hr, 0 mls/hr Ciprofloxacin (Cipro / D5w) 400 mg in 200 mls @ 100 mls/hr IV Q12H [facility]; Prot ocol Stop: 04/26/22 08:59 Last Admin: 04/21/22 09:22 Dose: 100 mls/hr Pantoprazole Sodium 40 mg/ (Syringe) 10 mls @ 5 mls/min IV BID [facility] Stop: 05/16/22 17:29 Last Admin: 04/21/22 09:23 Dose: 5 mls/min Potassium Chloride/Sodium Chloride (Normal Saline W/20 Meq Kcl) 20 meq in 1,000 mls @ 125 mls/hr IV .Q8H [facility]; Protocol Stop: 05/17/22 09:44 Last Admin: 04/21/22 05:41 Dose: 125 mls/hr Promethazine HCl 6.25 mg/ (Sodium Chloride) 50.25 mls @ 201 mls/hr IV Q6H PRN PRN Reason: Nausea And Vomiting Stop: 05/17/22 10:34 Last Infusion: 04/18/22 17:26 Dose: Infused Metronidazole (Flagyl) 500 mg in 100 mls @ 100 mls/hr IV Q8H [facility]; Protocol Stop: 04/26/22 13:59 Last Infusion: 04/21/22 09:23 Dose: Infused Imipramine HCl (Imipramine Hcl 25 Mg Tab) 125 mg PO HS [facility]NA Stop: 05/15/22 21:01 Last Admin: 04/20/22 21:27 Dose: 125 mg Lorazepam (Lorazepam 1 Mg Tab) 1 mg PO HS PRN PRN Reason: Sleep Stop: 05/15/22 21:01 Last Admin: 04/18/22 21:16 Dose: 1 mg Miscellaneous (Order Awaiting Action - Dexmethylphenidate) 1 each N/A QS [facility] Stop: 05/16/22 00:00 Last Admin: 04/21/22 09:22 Dose: Not Given Oxycodone HCl (Oxycodone Hcl Ir 5 Mg Tab (Immediate Release)) 10 mg PO Q4H PRN PRN Reason: Pain Stop: 04/29/22 22:22 Last Admin: 04/19/22 10:45 Dose: 10 mg Polyethylene Glycol (Polyethylene (Miralax) 17 Gm Pack) 17 gm PO DAILY PRN PRN Reason: Constipation Stop: 05/15/22 21:01
--- NOTE | 2022-04-21 16:39 | Ultrasound Report ---
RIGHT UPPER EXTREMITY VENOUS DOPPLER HISTORY: Right forearm swelling. COMPARISON STUDY: None. FINDINGS: The right internal jugular vein is patent. There is normal flow within the right subclavian vein. There is normal flow and compressibility within the right axillary, basilic, brachial, radial, ulnar, and visualized cephalic veins. Small thrombosed superficial vein within the medial proximal f orearm. IMPRESSION: 1. No DVT within the right upper extremity. 2. Small thrombosed superficial vein within the medial proximal forearm. ACT 112: Negative or not required by law. Electronically signed by: Lyndon Kwan M.D. 04/21/2022 4:37 PM
[2022-04-21] MEDS ORDERED: CIPROFLOXACIN 500 MG TAB PO STA (16:52)
[2022-04-21] MEDS ORDERED: metroNIDAZOLE 500 MG TAB PO STA (16:52)
[2022-04-21] MEDS ORDERED: DICLOFENAC SOD 1% GEL 100 GM TUBE EXT SCH (21:00)
--- NOTE | 2022-04-28 14:57 | Discharge Summary ---
Date of Service April 28, 2022 Admission HPI Per Admitting Provider Chief Complaint: severe acute abdominal pain Primary Care Provider: Michael Dos Santos MD 46 yo F presents with acute onset severe abdominal pain She reports frequent post-prandial episodes of abdominal pain in the past 6 months and reports weight gain despite "doing everything I can" to lose weight She does report dysuria for the past few days. No fevers, chills, chest pain, SOB Abdominal pain is sharp just under the umbilicus, changes in intensity. Can peak post-prandial to an unbearable level. It is intermittent. Denies blood per rectum, diarrhea or constipation. Reports a h/o IBS with al ternating diarrhea and constipation. Denies nausea, vomiting or hematemesis. Admission Exam Per Admitting Provider Physical Exam: CONSTITUTIONAL: WNWD, vitals as above, moderate distress from abdominal pain, holding her abdomen at times. EYES: normal conjunctivae, no scleral icterus ENT: external ear and nose normal, MMM NECK: trachea midline RESPIRATORY: clear to auscultation bilaterally, no crackles, rales or wheezes, normal respiratory effort CARDIOVASCULAR: regular rate and rhythm, S1 and 2 heard without murmurs, gallops or rubs, no JVD, no peripheral edema CHEST: inspection of chest was normal GASTROINTESTINAL: soft, diffusely tender RUQ>LLQ>suprapubic, no CVA tenderness, nondistended. MUSCULOSKELETAL: strength 5/5 throughout, head is normocephalic and atraumatic, able to sit up in bed independently SKIN: warm and dry NEUROLOGIC: CN 2-12 grossly intact, no sensory deficit, normal cognition, normal speech, no tremor PSYCHIATRIC: alert cooperative and oriented to person, place and time. Principal Diagnosis Portal vein thrombosis, ischemic colitis Discharge Data Allergies Allergy/AdvReac Type Severity Reaction Status Date / Time Penicillins Allergy Severe DIFFICULTY Verified 04/15/22 15:21 BREATHING-ANAPHYLAXIS mushroom Allergy Unknown ANAPHYLAXIS Verified 04/15/22 15:21 morphine AdvReac Intermediate EMESIS Verified 04/15/22 15:21 Consultations 04/15/22 17:54 ED Decision to Admit Stat 04/15/22 21:02 Consult Gastroenterology Routine 04/16/22 08:40 Consult General Surgery Routine Procedures Performed Operation Date: 04/19/22 17:25 Actual Procedures p Flexible Sigmoidoscopy - Alfonso Corcoran MD Ordered Studies 04/15/22 14:37 CT abd pelvis IV con only Stat 04/19/22 12:30 MR abdomen wo/w con Routine 04/21/22 12:02 US arm [US venous doppler UE RT] Urgent Total Time Total Time Spent Total Time Spent (In Minutes): 35 minutes Discharge Plan Discharge Items Patient Disposition: Home - Self-Care Reason For Visit: PVT Discharge Diagnosis: Portal vein thrombosis, ischemic colitis Condition on Discharge: Fair Activity: Resume your previous activity Non-emergency contact: Primary Care Provider Call non-emergency contact if: you have any medication questions and your symptoms worsen Follow-up/Referrals: Michael Dos Santos MD [Primary Care Provider] - (You will be called on Saturday to have an appointment with your PCP within 7 days) Diet: Low Fiber and Vegetarian (Lacto-Ovo) Diet Comment: As tolerated Addtl Attending Provider Instructions: Please take precautions to avoid falls Finish the course of antibiotic and try [id number] probiotics Anticoagulation for portal vein thrombosis can be started after 5 days from now- your primary care provider will arrange that for you You need to see a presser machine as an outpatient too-you will be called with appointment [facility] [address] gastroenterology service will give you a call for appointment Start antibiotic from this evening Pending Studies at Discharge: No Stand-Alone Forms: My [facility], Smoking Cessation Medications and DC Order Prescriptions: New ciprofloxacin HCl 500 mg tablet 500 mg PO BID Qty: 14 0RF diclofenac sodium [Voltaren Arthritis Pain] 1 % Gel 2 g EXT BID 10 Days Qty: 50 0RF Continued imipramine HCl 50 mg tablet 125 mg PO HS Rx Instructions: take 2 & 1/2 tablet dose tramadol 50 mg tablet 50 mg PO Q6 PRN (Reason: Pain, Severe) dexmethylphenidate 10 mg tablet 10 mg PO TID buspirone 10 mg tablet 10 mg PO TID norethindrone ac-eth estradiol [09/07 ()] 1-20 mg-mcg tablet 1 tab PO DAILY lorazepam 1 mg tablet 1 mg PO HS PRN (Reason: Sleep) bupropion HCl 300 mg tablet extended release 24 hr 300 mg PO HS bupropion HCl 150 mg tablet extended release 24 hr 150 mg PO HS Rx Instructions: take along with 300mg Discharge Orders: Discharge Order (Routine); Ordered 04/21/22 Ordered By: Jb Leroy Admission Data Admit Date/Time: 04/15/22 19:53 Attending Provider: Jb Leroy Admit Provider: Klaudai Frost Primary Care Provider: Michael Dos Santos Other Providers: Klaudia Frost ; Leslye Neal ; Jostin Watkins ; Emmanuel Hdz ; Josefina Castañeda ; Daisy Franks ; Jah Arredondo ; Brandon Epperson ; Lupe Denton ; Jocelyn Htuchison ; Juaquin Rivero Jr ; Avery Valente ; Kostas Milner ; Genevieve Puentes ; Jones Ly Other Interventions: Discharge Summary Assessment (RN) Last Done: 04/21/22 11:32
== END 2022-04-21 17:15 | disposition home or self-care (01) | DRG 441 ==
LOC: ED 14:18 → SUATTDRO 19:53 → 3W 19:53 → 2S 04-16 15:15